=== PATIENT | female | born 1965 | race African-American/Black ===

== ENCOUNTER 2016-09-04 12:37 | Emergency (ER) | payer OTHER ==
[~2016-09-04] VITALS: Ht 170.2 cm; Wt 85.0 kg
[~2016-09-04 12:37] MED LIST: FERR-89 PO; OLAN10TA3 PO; OMEP10 PO
[2016-09-04] MEDS ORDERED: GABA-531 PO (14:03)
[2016-09-04 14:56] VITALS: BP 136/82
== END 2016-09-04 15:43 | disposition home or self-care (01) ==
LOC: EMS 12:38
DX: Z76.0 Encounter for issue of repeat prescription (principal); M79.673 Pain in unspecified foot; K21.9 Gastro-esophageal reflux disease without esophagitis; F14.90 Cocaine use, unspecified, uncomplicated; F17.210 Nicotine dependence, cigarettes, uncomplicated
CPT/HCPCS: 99283

== ENCOUNTER 2016-10-03 12:33 | Inpatient (IN) | payer MEDICAID, OTHER ==
[~2016-10-03] VITALS: Ht 170.2 cm; Wt 60.0 kg
[~2016-10-03 12:33] MED LIST changes: +GABA-531 PO
[2016-10-03 12:51] LABS: GLUCOSE,POINT OF CARE 131 MG/DL (70-110)
[2016-10-03] MEDS ORDERED: DiphenhydrAMINE HCL 50 MG/ML VIAL IM ONE (13:15)
[2016-10-03] MEDS ORDERED: LORazepam 2 MG/ML VIAL IM ONE (13:15)
[2016-10-03] MEDS ORDERED: HALOPERIDOL LACTATE 5 MG/ML VIAL IM ONE (13:15)
[2016-10-03 13:21] LABS: ANION GAP 12 mmol/L (8-16); BASOPHILS % (AUTO) 0.3 % (0.0-2.0); CALCIUM, TOTAL 8.4 mg/dL (8.8-10.5); CARBON DIOXIDE 26 mmol/L (22-29); CHLORIDE 105 mmol/L (98-107); CREATININE 0.93 mg/dL (0.60-1.30); EOSINOPHILS % (AUTO) 0.2 % (1.0-6.0); GLOMERULAR FILTR. RATE CALC > 60 mL/min (>60); HEMATOCRIT 38.4 % (36-46); HEMOGLOBIN 12.6 g/dL (12.0-16.0); LYMPHOCYTES # (AUTO) 3.8 K/uL (1.0-4.8); MEAN CORPUSCULAR HEMOGLOBIN 30.1 pg (26.0-34.0); MEAN CORPUSCULAR HGB CONC 32.7 G/dL (31.0-37.0); MEAN CORPUSCULAR VOLUME 92 fL (80-100); MONOCYTES % (AUTO) 6.6 % (2.0-9.0); NEUTROPHILS # (AUTO) 10.3 K/uL (1.8-7.7); NEUTROPHILS % (AUTO) 67.9 % (40.0-70.0); PLATELET COUNT (AUTO) 200 K/uL (150-450); POTASSIUM 3.6 mmol/L (3.5-5.1); RED BLOOD CELL COUNT(AUTO) 4.17 MIL/uL (4.00-5.20); RED CELL DISTRIBUTION WIDTH 13.9 % (11.5-14.5); SODIUM SERUM 143 mmol/L (136-145); UREA NITROGEN, BLOOD 26 mg/dL (7-18); WHITE BLOOD COUNT (AUTO) 15.1 K/uL (4.5-11.0)
[2016-10-03 13:26] LABS: ALANINE AMINOTRANSFERASE 146 U/L (12-78); ALBUMIN 3.9 g/dL (3.4-5.0); ASPARTATE AMINOTRANSFERASE 189 U/L (15-37); BILIRUBIN,TOTAL 0.2 mg/dL (0.1-1.0)
[2016-10-03] MEDS ORDERED: LORazepam 2 MG TABLET PO PRN (17:45)
[2016-10-03] MEDS ORDERED: HALOPERIDOL 5 MG TABLET PO PRN (17:45)
[2016-10-03] MEDS ORDERED: ZOLPIDEM TARTRATE 10 MG TABLET PO PRN (17:45)
[2016-10-03 20:23] VITALS: BP 107/59
[2016-10-03 20:32] VITALS: BP 107/69
[2016-10-03] MEDS ORDERED: INFLUENZA VIRUS VACCINE QVS 2016-17 (3YR+)/PF 60 MCG/0.5 ML SYRINGE IM ONE (20:45)
[2016-10-03] MEDS: OLANZapine 10 MG TABLET PO SCH (21:00)
[2016-10-03] MEDS ORDERED: OLANZapine 10 MG TABLET PO SCH (21:00)
[2016-10-04 00:47] VITALS: BP 106/75
[2016-10-04 06:00] VITALS: BP 108/72
[2016-10-04] MEDS: ACETAMINOPHEN 325 MG TABLET PO PRN ×2 (06:17→16:51)
[2016-10-04] MEDS: GABAPENTIN 300 MG CAPSULE PO SCH (08:35)
[2016-10-04] MEDS ORDERED: GABAPENTIN 300 MG CAPSULE PO SCH (09:00)
[2016-10-04 16:00] VITALS: BP 134/77
[2016-10-04] MEDS: OLANZapine 10 MG TABLET PO SCH (20:10)
[2016-10-05 08:21] VITALS: BP 130/68
[2016-10-05] MEDS: GABAPENTIN 300 MG CAPSULE PO SCH (08:48)
[2016-10-05 16:05] VITALS: BP 111/69
[2016-10-05] MEDS ORDERED: ACETAMINOPHEN 325 MG TABLET PO PRN (16:45)
[2016-10-05 17:20] VITALS: BP 117/73
[2016-10-05] MEDS: OLANZapine 10 MG TABLET PO SCH (20:30)
[2016-10-05] MEDS ORDERED: IBUPROFEN 400 MG TABLET PO PRN (22:00)
[2016-10-06 00:30] VITALS: BP 129/84
[2016-10-06] MEDS: FERROUS SULFATE 325 MG EC TABLET PO SCH ×3 (06:25→16:09)
[2016-10-06 08:16] VITALS: BP 126/63
[2016-10-06 09:23] LABS: HEMOGLOBIN A1C 5.2 % (4.5-6.2)
[2016-10-06] MEDS: GABAPENTIN 300 MG CAPSULE PO SCH (09:37)
[2016-10-06] MEDS: OMEPRAZOLE 10 MG CAPSULE PO SCH (09:38)
[2016-10-06 09:54] LABS: CHOL/HDL RATIO 2.9 (3.9-5.7); THYROID STIMULATING HORMONE 0.74 uIU/mL (0.36-3.74)
[2016-10-06 16:01] VITALS: BP 119/74
[2016-10-06] MEDS: OLANZapine 10 MG TABLET PO SCH (20:05)
[2016-10-07] MEDS: FERROUS SULFATE 325 MG EC TABLET PO SCH ×3 (06:20→16:22)
[2016-10-07 06:23] VITALS: BP 113/69
[2016-10-07 08:13] VITALS: BP 111/63
[2016-10-07 08:32] LABS: BASOPHILS % (AUTO) 0.6 % (0.0-2.0); EOSINOPHILS % (AUTO) 7.4 % (1.0-6.0); HEMATOCRIT 35.9 % (36-46); HEMOGLOBIN 11.6 g/dL (12.0-16.0); LYMPHOCYTES # (AUTO) 2.9 K/uL (1.0-4.8); LYMPHOCYTES % (AUTO) 40.1 % (22.0-44.0); MEAN CORPUSCULAR HEMOGLOBIN 30.5 pg (26.0-34.0); MEAN CORPUSCULAR HGB CONC 32.4 G/dL (31.0-37.0); MEAN CORPUSCULAR VOLUME 94 fL (80-100); MONOCYTES # (AUTO) 0.6 K/uL (0.1-1.0); MONOCYTES % (AUTO) 8.8 % (2.0-9.0); NEUTROPHILS # (AUTO) 3.1 K/uL (1.8-7.7); NEUTROPHILS % (AUTO) 43.1 % (40.0-70.0); PLATELET COUNT (AUTO) 154 K/uL (150-450); RED BLOOD CELL COUNT(AUTO) 3.82 MIL/uL (4.00-5.20); RED CELL DISTRIBUTION WIDTH 13.9 % (11.5-14.5); WHITE BLOOD COUNT (AUTO) 7.1 K/uL (4.5-11.0)
[2016-10-07] MEDS: OMEPRAZOLE 10 MG CAPSULE PO SCH (08:33)
[2016-10-07] MEDS: GABAPENTIN 300 MG CAPSULE PO SCH (08:33)
[2016-10-07 16:04] VITALS: BP 110/66
[2016-10-07] MEDS: BACITRACIN 28.4 GM OINTMENT TP SCH (16:42)
[2016-10-07] MEDS: CEPHALEXIN MONOHYDRATE 500 MG CAPSULE PO SCH ×2 (16:42→20:36)
[2016-10-07] MEDS: SULFAMETHOX/TRIMETH DS 800-160 MG/TABLET PO SCH (16:42)
[2016-10-07] MEDS: OLANZapine 10 MG TABLET PO SCH (20:36)
[2016-10-08 00:07] VITALS: BP 135/80
[2016-10-08] MEDS: FERROUS SULFATE 325 MG EC TABLET PO SCH ×2 (06:10→11:43)
[2016-10-08 08:52] VITALS: BP 120/76
[2016-10-08] MEDS: CEPHALEXIN MONOHYDRATE 500 MG CAPSULE PO SCH ×2 (09:03→12:43)
[2016-10-08] MEDS: BACITRACIN 28.4 GM OINTMENT TP SCH (09:03)
[2016-10-08] MEDS: OMEPRAZOLE 10 MG CAPSULE PO SCH (09:04)
[2016-10-08] MEDS: GABAPENTIN 300 MG CAPSULE PO SCH (09:04)
[2016-10-08] MEDS: SULFAMETHOX/TRIMETH DS 800-160 MG/TABLET PO SCH (09:04)
[2016-10-08] MEDS ORDERED: BACI30OI10 TP (10:34)
[2016-10-08] MEDS ORDERED: SULF1TAB42 PO (10:34)
[2016-10-08] MEDS ORDERED: CEPH500 PO (10:34)
== END 2016-10-08 13:15 | disposition home or self-care (01) | DRG 750 ==
LOC: EMS 12:35 → EEVIPCON 12:35 → B3A 17:54 → EMS 18:39 → B2S 10-05 12:15
DX: F25.0 Schizoaffective disorder, bipolar type (principal); K73.9 Chronic hepatitis, unspecified; N18.3 Chronic kidney disease, stage 3 (moderate); J44.9 Chronic obstructive pulmonary disease, unspecified; D64.9 Anemia, unspecified; F10.10 Alcohol abuse, uncomplicated; F14.90 Cocaine use, unspecified, uncomplicated; F17.210 Nicotine dependence, cigarettes, uncomplicated; K21.9 Gastro-esophageal reflux disease without esophagitis; Z98.890 Other specified postprocedural states; Z79.84 Long term (current) use of oral hypoglycemic drugs; Z28.21 Immunization not carried out because of patient refusal
CPT/HCPCS: 82962; 83036; 84443; 96372; 99285; G0480; J1200; J1630; J2060

== ENCOUNTER 2016-10-13 04:37 | Emergency (ER) | payer MEDICAID, OTHER ==
[~2016-10-13] VITALS: Ht 170.2 cm; Wt 71.4 kg
[~2016-10-13 04:37] MED LIST changes: +BACI30OI10 TP; +CEPH500 PO; -FERR-89 PO; +FERS325 PO; +SULF1TAB42 PO
[2016-10-13 05:41] LABS: BASOPHILS % (AUTO) 0.3 % (0.0-2.0); EOSINOPHILS % (AUTO) 2.4 % (1.0-6.0); HEMATOCRIT 33.5 % (36-46); HEMOGLOBIN 10.8 g/dL (12.0-16.0); LYMPHOCYTES # (AUTO) 2.5 K/uL (1.0-4.8); LYMPHOCYTES % (AUTO) 27.5 % (22.0-44.0); MEAN CORPUSCULAR HEMOGLOBIN 30.1 pg (26.0-34.0); MEAN CORPUSCULAR HGB CONC 32.1 G/dL (31.0-37.0); MEAN CORPUSCULAR VOLUME 94 fL (80-100); MONOCYTES # (AUTO) 1.1 K/uL (0.1-1.0); MONOCYTES % (AUTO) 11.9 % (2.0-9.0); NEUTROPHILS # (AUTO) 5.3 K/uL (1.8-7.7); NEUTROPHILS % (AUTO) 57.9 % (40.0-70.0); PLATELET COUNT (AUTO) 193 K/uL (150-450); RED BLOOD CELL COUNT(AUTO) 3.58 MIL/uL (4.00-5.20); RED CELL DISTRIBUTION WIDTH 13.4 % (11.5-14.5); WHITE BLOOD COUNT (AUTO) 9.2 K/uL (4.5-11.0)
[2016-10-13 05:53] LABS: ANION GAP 5 mmol/L (8-16); CALCIUM, TOTAL 8.7 mg/dL (8.8-10.5); CARBON DIOXIDE 33 mmol/L (22-29); CHLORIDE 103 mmol/L (98-107); CREATININE 0.85 mg/dL (0.60-1.30); GLOMERULAR FILTR. RATE CALC > 60 mL/min (>60); POTASSIUM 4.2 mmol/L (3.5-5.1); SODIUM SERUM 141 mmol/L (136-145); UREA NITROGEN, BLOOD 14 mg/dL (7-18)
[2016-10-13 06:00] LABS: ALANINE AMINOTRANSFERASE 55 U/L (12-78); ASPARTATE AMINOTRANSFERASE 56 U/L (15-37); BILIRUBIN,TOTAL 1.1 mg/dL (0.1-1.0); TOTAL PROTEIN, SERUM 6.9 g/dL (6.4-8.2)
[2016-10-13] MEDS ORDERED: TraMADol HCL 50 MG TABLET PO ONE (09:30)
[2016-10-13 09:32] VITALS: BP 124/74
== END 2016-10-13 09:56 | disposition home or self-care (01) ==
LOC: EMS 04:39
DX: R68.84 Jaw pain (principal); F20.9 Schizophrenia, unspecified; F12.10 Cannabis abuse, uncomplicated; F17.210 Nicotine dependence, cigarettes, uncomplicated; K21.9 Gastro-esophageal reflux disease without esophagitis; F31.9 Bipolar disorder, unspecified; F14.90 Cocaine use, unspecified, uncomplicated
CPT/HCPCS: 36415; 80053; 80307; 85025; 99284; 99406; G0480

== ENCOUNTER 2016-10-18 06:42 | Emergency (ER) | payer OTHER ==
[~2016-10-18] VITALS: Ht 170.2 cm; Wt 65.0 kg
[~2016-10-18 06:42] MED LIST changes: +FERR-89 PO; -FERS325 PO
[2016-10-18 07:18] LABS: BASOPHILS % (AUTO) 0.4 % (0.0-2.0); EOSINOPHILS % (AUTO) 3.8 % (1.0-6.0); HEMATOCRIT 36.3 % (36-46); HEMOGLOBIN 11.8 g/dL (12.0-16.0); LYMPHOCYTES # (AUTO) 2.7 K/uL (1.0-4.8); LYMPHOCYTES % (AUTO) 44.4 % (22.0-44.0); MEAN CORPUSCULAR HEMOGLOBIN 30.9 pg (26.0-34.0); MEAN CORPUSCULAR HGB CONC 32.4 G/dL (31.0-37.0); MEAN CORPUSCULAR VOLUME 95 fL (80-100); MONOCYTES # (AUTO) 0.7 K/uL (0.1-1.0); MONOCYTES % (AUTO) 10.7 % (2.0-9.0); NEUTROPHILS # (AUTO) 2.5 K/uL (1.8-7.7); NEUTROPHILS % (AUTO) 40.7 % (40.0-70.0); PLATELET COUNT (AUTO) 279 K/uL (150-450); RED BLOOD CELL COUNT(AUTO) 3.81 MIL/uL (4.00-5.20); RED CELL DISTRIBUTION WIDTH 14.3 % (11.5-14.5); WHITE BLOOD COUNT (AUTO) 6.2 K/uL (4.5-11.0)
[2016-10-18 07:30] LABS: ANION GAP 5 mmol/L (8-16); CALCIUM, TOTAL 8.2 mg/dL (8.8-10.5); CARBON DIOXIDE 32 mmol/L (22-29); CHLORIDE 107 mmol/L (98-107); CREATININE 0.69 mg/dL (0.60-1.30); GLOMERULAR FILTR. RATE CALC > 60 mL/min (>60); SODIUM SERUM 144 mmol/L (136-145); UREA NITROGEN, BLOOD 13 mg/dL (7-18)
[2016-10-18] MEDS ORDERED: OxyCODONE HCL/ACETAMINOPHEN 5-325 MG TABLET PO ONE (07:30)
[2016-10-18] MEDS ORDERED: LORazepam 1 MG TABLET PO ONE (07:30)
[2016-10-18 07:39] LABS: ALANINE AMINOTRANSFERASE 35 U/L (12-78); ALBUMIN 3.2 g/dL (3.4-5.0); ASPARTATE AMINOTRANSFERASE 29 U/L (15-37); BILIRUBIN,TOTAL 0.5 mg/dL (0.1-1.0); TOTAL PROTEIN, SERUM 7.2 g/dL (6.4-8.2)
[2016-10-18 08:41] VITALS: BP 121/76
== END 2016-10-18 08:42 | disposition home or self-care (01) ==
LOC: EMS 06:44
DX: R68.84 Jaw pain (principal); F41.9 Anxiety disorder, unspecified; K21.9 Gastro-esophageal reflux disease without esophagitis; F31.9 Bipolar disorder, unspecified; F20.9 Schizophrenia, unspecified; F17.210 Nicotine dependence, cigarettes, uncomplicated; F14.90 Cocaine use, unspecified, uncomplicated
CPT/HCPCS: 93005; 99285

== ENCOUNTER 2016-10-21 05:04 | Emergency (ER) | payer OTHER ==
[~2016-10-21] VITALS: Ht 170.2 cm; Wt 75.0 kg
[~2016-10-21 05:04] MED LIST changes: -BACI30OI10 TP; -CEPH500 PO; -FERR-89 PO; -GABA-531 PO; -OMEP10 PO; -SULF1TAB42 PO
[2016-10-21 05:10] VITALS: BP 146/88
== END 2016-10-21 06:27 | disposition left against medical advice (07) ==
LOC: EMS 05:06
DX: Z76.0 Encounter for issue of repeat prescription (principal); Z53.21 Procedure and treatment not carried out due to patient leaving prior to being seen by health care provider

== ENCOUNTER 2016-10-22 19:10 | Emergency (ER) | payer OTHER ==
[~2016-10-22] VITALS: Ht 165.1 cm; Wt 65.9 kg
[2016-10-22] MEDS ORDERED: TraMADol HCL 50 MG TABLET PO ONE (21:15)
[2016-10-22 21:20] VITALS: BP 132/78
== END 2016-10-22 21:21 | disposition home or self-care (01) ==
LOC: EMS 19:11
DX: R68.84 Jaw pain (principal); F31.9 Bipolar disorder, unspecified; F17.210 Nicotine dependence, cigarettes, uncomplicated; K21.9 Gastro-esophageal reflux disease without esophagitis; F20.9 Schizophrenia, unspecified
CPT/HCPCS: 99283

== ENCOUNTER 2016-10-26 06:58 | Emergency (ER) | payer OTHER ==
[~2016-10-26] VITALS: Ht 170.2 cm; Wt 64.0 kg
[2016-10-26] MEDS ORDERED: SERT50TA12 PO (07:08)
[2016-10-26 07:45] LABS: BASOPHILS % (AUTO) 0.6 % (0.0-2.0); EOSINOPHILS % (AUTO) 1.8 % (1.0-6.0); HEMOGLOBIN 12.6 g/dL (12.0-16.0); LYMPHOCYTES # (AUTO) 2.4 K/uL (1.0-4.8); LYMPHOCYTES % (AUTO) 36.2 % (22.0-44.0); MEAN CORPUSCULAR HEMOGLOBIN 30.5 pg (26.0-34.0); MEAN CORPUSCULAR HGB CONC 32.2 G/dL (31.0-37.0); MEAN CORPUSCULAR VOLUME 95 fL (80-100); MONOCYTES # (AUTO) 0.5 K/uL (0.1-1.0); MONOCYTES % (AUTO) 8.3 % (2.0-9.0); NEUTROPHILS # (AUTO) 3.5 K/uL (1.8-7.7); NEUTROPHILS % (AUTO) 53.1 % (40.0-70.0); PLATELET COUNT (AUTO) 294 K/uL (150-450); RED BLOOD CELL COUNT(AUTO) 4.12 MIL/uL (4.00-5.20); RED CELL DISTRIBUTION WIDTH 15.1 % (11.5-14.5); WHITE BLOOD COUNT (AUTO) 6.5 K/uL (4.5-11.0)
[2016-10-26 07:53] LABS: ANION GAP 9 mmol/L (8-16); CALCIUM, TOTAL 8.8 mg/dL (8.8-10.5); CARBON DIOXIDE 29 mmol/L (22-29); CHLORIDE 104 mmol/L (98-107); GLOMERULAR FILTR. RATE CALC > 60 mL/min (>60); POTASSIUM 3.8 mmol/L (3.5-5.1); SODIUM SERUM 142 mmol/L (136-145); UREA NITROGEN, BLOOD 12 mg/dL (7-18)
[2016-10-26 08:00] LABS: ALANINE AMINOTRANSFERASE 28 U/L (12-78); ALBUMIN 3.6 g/dL (3.4-5.0); ASPARTATE AMINOTRANSFERASE 30 U/L (15-37); BILIRUBIN,TOTAL 0.6 mg/dL (0.1-1.0); TOTAL PROTEIN, SERUM 7.6 g/dL (6.4-8.2)
[2016-10-26] MEDS ORDERED: OLANZapine 5 MG TABLET PO ONE (08:30)
[2016-10-26 08:35] VITALS: BP 129/78
== END 2016-10-26 08:38 | disposition home or self-care (01) ==
LOC: EMS 07:01
DX: F25.9 Schizoaffective disorder, unspecified (principal); F31.9 Bipolar disorder, unspecified; F14.90 Cocaine use, unspecified, uncomplicated; K21.9 Gastro-esophageal reflux disease without esophagitis; F17.210 Nicotine dependence, cigarettes, uncomplicated
CPT/HCPCS: 36415; 80053; 85025; 99284; G0480

== ENCOUNTER 2016-10-28 13:48 | Emergency (ER) | payer OTHER ==
[~2016-10-28] VITALS: Ht 165.1 cm; Wt 54.5 kg
[~2016-10-28 13:48] MED LIST changes: +SERT50TA12 PO
[2016-10-28 13:50] VITALS: BP 146/52
== END 2016-10-28 14:46 | disposition left against medical advice (07) ==
LOC: EMS 13:50
DX: Z04.6 Encounter for general psychiatric examination, requested by authority (principal); Z53.21 Procedure and treatment not carried out due to patient leaving prior to being seen by health care provider

== ENCOUNTER 2016-11-13 08:55 | Inpatient (IN) | payer MEDICAID, OTHER ==
[~2016-11-13] VITALS: Ht 160 cm; Wt 57.8 kg
[2016-11-13] MEDS ORDERED: DiphenhydrAMINE HCL 50 MG/ML VIAL IM ONE (09:15)
[2016-11-13] MEDS ORDERED: HALOPERIDOL LACTATE 5 MG/ML VIAL IM ONE (09:15)
[2016-11-13] MEDS ORDERED: LORazepam 2 MG/ML VIAL IM ONE (09:15)
[2016-11-13] MEDS ORDERED: ACETAMINOPHEN 500 MG TABLET PO ONE (09:15)
[2016-11-13 09:58] LABS: BASOPHILS % (AUTO) 0.7 % (0.0-2.0); EOSINOPHILS % (AUTO) 1.9 % (1.0-6.0); HEMATOCRIT 38.8 % (36-46); HEMOGLOBIN 12.6 g/dL (12.0-16.0); LYMPHOCYTES # (AUTO) 3.6 K/uL (1.0-4.8); LYMPHOCYTES % (AUTO) 44.1 % (22.0-44.0); MEAN CORPUSCULAR HEMOGLOBIN 30.6 pg (26.0-34.0); MEAN CORPUSCULAR HGB CONC 32.4 G/dL (31.0-37.0); MEAN CORPUSCULAR VOLUME 94 fL (80-100); MONOCYTES # (AUTO) 0.5 K/uL (0.1-1.0); MONOCYTES % (AUTO) 5.8 % (2.0-9.0); NEUTROPHILS # (AUTO) 3.9 K/uL (1.8-7.7); NEUTROPHILS % (AUTO) 47.5 % (40.0-70.0); PLATELET COUNT (AUTO) 193 K/uL (150-450); RED BLOOD CELL COUNT(AUTO) 4.12 MIL/uL (4.00-5.20); RED CELL DISTRIBUTION WIDTH 13.8 % (11.5-14.5); WHITE BLOOD COUNT (AUTO) 8.1 K/uL (4.5-11.0)
[2016-11-13 10:01] LABS: ANION GAP 8 mmol/L (8-16); CALCIUM, TOTAL 8.6 mg/dL (8.8-10.5); CARBON DIOXIDE 29 mmol/L (22-29); CHLORIDE 105 mmol/L (98-107); CREATININE 0.71 mg/dL (0.60-1.30); GLOMERULAR FILTR. RATE CALC > 60 mL/min (>60); POTASSIUM 4.1 mmol/L (3.5-5.1); SODIUM SERUM 142 mmol/L (136-145); UREA NITROGEN, BLOOD 16 mg/dL (7-18)
[2016-11-13 10:07] LABS: ALANINE AMINOTRANSFERASE 33 U/L (12-78); ALBUMIN 3.4 g/dL (3.4-5.0); ASPARTATE AMINOTRANSFERASE 29 U/L (15-37); BILIRUBIN,TOTAL 0.4 mg/dL (0.1-1.0); TOTAL PROTEIN, SERUM 7.1 g/dL (6.4-8.2)
[2016-11-13] MEDS ORDERED: ZOLPIDEM TARTRATE 10 MG TABLET PO PRN (10:15)
[2016-11-13 13:18] VITALS: BP 122/62
[2016-11-13 16:00] VITALS: BP 114/72
[2016-11-14 06:57] VITALS: BP 121/68
[2016-11-14 16:45] VITALS: BP 128/80
[2016-11-14] MEDS: IBUPROFEN 600 MG TABLET PO PRN (16:47)
[2016-11-14] MEDS: OLANZapine 10 MG TABLET PO SCH (20:34)
[2016-11-15 08:58] VITALS: BP 126/86
[2016-11-15 09:58] VITALS: BP 118/70
[2016-11-15] MEDS: IBUPROFEN 600 MG TABLET PO PRN ×2 (09:58→20:22)
[2016-11-15] MEDS ORDERED: HALOPERIDOL LACTATE 5 MG/ML VIAL IM ONE (13:00)
[2016-11-15] MEDS ORDERED: LORazepam 2 MG/ML VIAL IM ONE (13:00)
[2016-11-15] MEDS ORDERED: DiphenhydrAMINE HCL 50 MG/ML VIAL IM ONE (13:00)
[2016-11-15 16:22] VITALS: BP 108/67
[2016-11-15 20:20] VITALS: BP 105/69
[2016-11-15] MEDS: OLANZapine 10 MG TABLET PO SCH (20:21)
[2016-11-16] MEDS: LORazepam 2 MG TABLET PO PRN (08:59)
[2016-11-16] MEDS: IBUPROFEN 600 MG TABLET PO PRN ×2 (08:59→20:41)
[2016-11-16] MEDS: HALOPERIDOL 5 MG TABLET PO PRN (08:59)
[2016-11-16 09:02] LABS: THYROID STIMULATING HORMONE 1.35 uIU/mL (0.36-3.74)
[2016-11-16 16:14] VITALS: BP 133/80
[2016-11-16 20:38] VITALS: BP 126/76
[2016-11-16] MEDS: OLANZapine 10 MG TABLET PO SCH (20:41)
[2016-11-17 02:28] VITALS: BP 107/75
[2016-11-17 08:17] VITALS: BP 125/82
[2016-11-17 09:11] VITALS: BP 120/78
[2016-11-17] MEDS: IBUPROFEN 600 MG TABLET PO PRN ×2 (09:11→17:16)
[2016-11-17 16:00] VITALS: BP 123/65
[2016-11-17] MEDS: HALOPERIDOL 5 MG TABLET PO PRN (17:16)
[2016-11-17 17:17] VITALS: BP 131/82
[2016-11-17] MEDS: OLANZapine 10 MG TABLET PO SCH (20:58)
[2016-11-18 02:29] VITALS: BP 101/70
[2016-11-18] MEDS: IBUPROFEN 600 MG TABLET PO PRN ×3 (02:31→15:27)
[2016-11-18 08:32] VITALS: BP 113/58
[2016-11-18 15:25] VITALS: BP 118/76
[2016-11-18 16:27] VITALS: BP 133/83
[2016-11-18] MEDS: OLANZapine 10 MG TABLET PO SCH (20:02)
[2016-11-18] MEDS: DIVALPROEX SODIUM 500 MG DR TABLET PO SCH (20:02)
[2016-11-19] MEDS: DIVALPROEX SODIUM 500 MG DR TABLET PO SCH ×2 (08:15→20:30)
[2016-11-19 08:17] VITALS: BP 128/62
[2016-11-19] MEDS: IBUPROFEN 600 MG TABLET PO PRN ×2 (08:17→16:12)
[2016-11-19 08:25] VITALS: BP 128/62
[2016-11-19 16:13] VITALS: BP 131/84
[2016-11-19] MEDS: HALOPERIDOL 5 MG TABLET PO PRN (16:29)
[2016-11-19] MEDS: LORazepam 2 MG TABLET PO PRN (16:29)
[2016-11-19] MEDS: OLANZapine 10 MG TABLET PO SCH (20:30)
[2016-11-20] MEDS: LORazepam 2 MG TABLET PO PRN ×2 (08:11→16:26)
[2016-11-20] MEDS: DIVALPROEX SODIUM 500 MG DR TABLET PO SCH ×2 (08:11→21:01)
[2016-11-20 08:12] VITALS: BP 142/81
[2016-11-20 08:36] LABS: APPEARANCE,URINE CLEAR (CLEAR); GLUCOSE, URINE (UA) NEGATIVE (NEGATIVE); KETONES,URINE NEGATIVE (NEGATIVE); LEUKOCYTE ESTERASE ,URINE NEGATIVE (NEGATIVE); OCCULT BLOOD,URINE NEGATIVE (NEGATIVE); PROTEIN,URINE NEGATIVE (NEGATIVE)
[2016-11-20 08:39] LABS: ADD UA MICROSCOPIC NO
[2016-11-20 16:07] VITALS: BP 117/60
[2016-11-20] MEDS: OLANZapine 10 MG TABLET PO SCH (21:01)
[2016-11-21 03:53] VITALS: BP 134/80
[2016-11-21] MEDS: IBUPROFEN 600 MG TABLET PO PRN ×2 (03:53→11:49)
[2016-11-21] MEDS: LORazepam 2 MG TABLET PO PRN (08:37)
[2016-11-21] MEDS: DIVALPROEX SODIUM 500 MG DR TABLET PO SCH ×2 (08:37→20:37)
[2016-11-21 09:25] VITALS: BP 126/77
[2016-11-21 11:49] VITALS: BP 122/74
[2016-11-21 16:28] VITALS: BP 115/77
[2016-11-21] MEDS: OLANZapine 10 MG TABLET PO SCH (20:37)
[2016-11-22 08:12] VITALS: BP 112/59
[2016-11-22] MEDS: LORazepam 2 MG TABLET PO PRN (09:06)
[2016-11-22] MEDS: DIVALPROEX SODIUM 500 MG DR TABLET PO SCH ×2 (09:06→20:27)
[2016-11-22 16:00] VITALS: BP 127/66
[2016-11-22] MEDS: OLANZapine 10 MG TABLET PO SCH (20:27)
[2016-11-23 00:10] VITALS: BP 124/70
[2016-11-23 08:36] VITALS: BP 103/57
[2016-11-23] MEDS: LORazepam 2 MG TABLET PO PRN ×2 (09:26→16:10)
[2016-11-23] MEDS: DIVALPROEX SODIUM 500 MG DR TABLET PO SCH ×2 (09:26→21:01)
[2016-11-23 10:49] VITALS: BP 111/64
[2016-11-23] MEDS: IBUPROFEN 600 MG TABLET PO PRN ×2 (10:51→21:01)
[2016-11-23 16:13] VITALS: BP 114/64
[2016-11-23] MEDS: OLANZapine 10 MG TABLET PO SCH (21:01)
[2016-11-24 07:01] VITALS: BP 115/62
[2016-11-24] MEDS: IBUPROFEN 600 MG TABLET PO PRN (07:14)
[2016-11-24 08:19] VITALS: BP 106/61
[2016-11-24] MEDS: LORazepam 2 MG TABLET PO PRN (08:29)
[2016-11-24] MEDS: DIVALPROEX SODIUM 500 MG DR TABLET PO SCH (08:29)
[2016-11-24] MEDS ORDERED: DIVA500T35 PO (14:27)
== END 2016-11-24 17:10 | disposition home or self-care (01) | DRG 750 ==
LOC: EMS 08:58 → B2S 11:23 → B3A 11-14 12:28
PROVIDERS: ADMIT Psychiatry & Neurology Child & Adolescent Psychiatry
DX: F25.0 Schizoaffective disorder, bipolar type (principal); K73.9 Chronic hepatitis, unspecified; N18.3 Chronic kidney disease, stage 3 (moderate); D64.9 Anemia, unspecified; K21.9 Gastro-esophageal reflux disease without esophagitis; F19.10 Other psychoactive substance abuse, uncomplicated; F17.210 Nicotine dependence, cigarettes, uncomplicated; Z72.89 Other problems related to lifestyle; Z71.51 Drug abuse counseling and surveillance of drug abuser; Z71.6 Tobacco abuse counseling
CPT/HCPCS: 83036; 84439; 84443; 96372; 99285; 99406; G0480; J1200; J1630; J2060

== ENCOUNTER 2016-12-19 15:37 | Emergency (ER) | payer MEDICAID ==
[~2016-12-19] VITALS: Ht 167.6 cm; Wt 54.5 kg
[~2016-12-19 15:37] MED LIST changes: +DIVA500T35 PO; -SERT50TA12 PO
[2016-12-19 15:43] VITALS: BP 118/75
== END 2016-12-19 15:57 | disposition left against medical advice (07) ==
LOC: EMS 15:39
DX: Z76.0 Encounter for issue of repeat prescription (principal); F17.210 Nicotine dependence, cigarettes, uncomplicated; F14.90 Cocaine use, unspecified, uncomplicated; Z53.21 Procedure and treatment not carried out due to patient leaving prior to being seen by health care provider

== ENCOUNTER 2017-01-08 07:32 | Emergency (ER) | payer MEDICAID, OTHER ==
[~2017-01-08] VITALS: Ht 170.2 cm; Wt 60.0 kg
[2017-01-08] MEDS ORDERED: IBUPROFEN 600 MG TABLET PO ONE (08:45)
[2017-01-08 08:56] VITALS: BP 127/78
== END 2017-01-08 08:59 | disposition home or self-care (01) ==
LOC: EMS 07:35
DX: S40.011A Contusion of right shoulder, initial encounter (principal); S50.12XA Contusion of left forearm, initial encounter; F31.9 Bipolar disorder, unspecified; F20.9 Schizophrenia, unspecified; K21.9 Gastro-esophageal reflux disease without esophagitis; F14.90 Cocaine use, unspecified, uncomplicated; F17.210 Nicotine dependence, cigarettes, uncomplicated; W01.0XXA Fall on same level from slipping, tripping and stumbling without subsequent striking against object, initial encounter; Y93.89 Activity, other specified; Y92.89 Other specified places as the place of occurrence of the external cause; Y99.8 Other external cause status
CPT/HCPCS: 99282; 99406

== ENCOUNTER 2017-01-15 23:59 | Emergency (ER) | payer OTHER ==
[~2017-01-15] VITALS: Ht 170.2 cm; Wt 54.0 kg
[2017-01-16 00:07] VITALS: BP 139/83
[2017-01-16] MEDS ORDERED: BENZTROPINE MESYLATE 1 MG/ML 2 ML AMP IM ONE (00:30)
[2017-01-16] MEDS ORDERED: HYDROCODONE/ACETAMINOPHEN 5-325 MG TABLET PO ONE (00:30)
[2017-01-16] MEDS ORDERED: DiphenhydrAMINE HCL 25 MG CAPSULE PO ONE (00:30)
== END 2017-01-16 00:57 | disposition home or self-care (01) ==
LOC: EMS 01-16 00:02
DX: G25.9 Extrapyramidal and movement disorder, unspecified (principal); M62.838 Other muscle spasm; R68.84 Jaw pain; F31.9 Bipolar disorder, unspecified; F20.9 Schizophrenia, unspecified; F17.210 Nicotine dependence, cigarettes, uncomplicated; F14.90 Cocaine use, unspecified, uncomplicated; K21.9 Gastro-esophageal reflux disease without esophagitis
CPT/HCPCS: 96372; 99283; J0515

== ENCOUNTER 2017-01-19 16:24 | Emergency (ER) | payer OTHER ==
[~2017-01-19] VITALS: Ht 170.2 cm; Wt 78.6 kg
[2017-01-19 16:31] VITALS: BP 123/76
== END 2017-01-19 19:32 | disposition left against medical advice (07) ==
LOC: EMS 16:27
DX: R68.84 Jaw pain (principal); K21.9 Gastro-esophageal reflux disease without esophagitis; F17.210 Nicotine dependence, cigarettes, uncomplicated; F14.90 Cocaine use, unspecified, uncomplicated; Z53.21 Procedure and treatment not carried out due to patient leaving prior to being seen by health care provider
CPT/HCPCS: 99283

== ENCOUNTER 2017-01-24 21:07 | Emergency (ER) | payer OTHER ==
[~2017-01-24] VITALS: Ht 170.2 cm; Wt 54.5 kg
[2017-01-24 22:14] VITALS: BP 122/81
[2017-01-24] MEDS ORDERED: SULFAMETHOX/TRIMETH DS 800-160 MG/TABLET PO ONE (22:15)
[2017-01-24] MEDS ORDERED: CEPHALEXIN MONOHYDRATE 500 MG CAPSULE PO ONE (22:15)
== END 2017-01-24 22:26 | disposition home or self-care (01) ==
LOC: EMS 21:08
DX: L03.114 Cellulitis of left upper limb (principal); F31.9 Bipolar disorder, unspecified; F20.9 Schizophrenia, unspecified; F14.10 Cocaine abuse, uncomplicated; F17.210 Nicotine dependence, cigarettes, uncomplicated; K21.9 Gastro-esophageal reflux disease without esophagitis
CPT/HCPCS: 99283; 99406

== ENCOUNTER 2017-01-26 22:29 | Emergency (ER) | payer OTHER ==
[~2017-01-26] VITALS: Ht 157.5 cm; Wt 60.0 kg
[2017-01-26 22:40] VITALS: BP 126/85
[2017-01-26 23:26] LABS: BASOPHILS % (AUTO) 0.9 % (0.0-2.0); EOSINOPHILS % (AUTO) 1.5 % (1.0-6.0); HEMATOCRIT 36.8 % (36-46); HEMOGLOBIN 12.3 g/dL (12.0-16.0); LYMPHOCYTES % (AUTO) 41.2 % (22.0-44.0); MEAN CORPUSCULAR HEMOGLOBIN 31.4 pg (26.0-34.0); MEAN CORPUSCULAR HGB CONC 33.4 G/dL (31.0-37.0); MEAN CORPUSCULAR VOLUME 94 fL (80-100); MONOCYTES # (AUTO) 0.4 K/uL (0.1-1.0); MONOCYTES % (AUTO) 5.4 % (2.0-9.0); NEUTROPHILS # (AUTO) 3.7 K/uL (1.8-7.7); PLATELET COUNT (AUTO) 150 K/uL (150-450); RED BLOOD CELL COUNT(AUTO) 3.92 MIL/uL (4.00-5.20); RED CELL DISTRIBUTION WIDTH 14.6 % (11.5-14.5); WHITE BLOOD COUNT (AUTO) 7.2 K/uL (4.5-11.0)
[2017-01-26 23:33] LABS: ANION GAP 6 mmol/L (8-16); CALCIUM, TOTAL 8.4 mg/dL (8.8-10.5); CARBON DIOXIDE 30 mmol/L (22-29); CHLORIDE 106 mmol/L (98-107); CREATININE 0.71 mg/dL (0.60-1.30); GLOMERULAR FILTR. RATE CALC > 60 mL/min (>60); POTASSIUM 3.6 mmol/L (3.5-5.1); SODIUM SERUM 142 mmol/L (136-145); UREA NITROGEN, BLOOD 11 mg/dL (7-18)
[2017-01-26 23:39] LABS: ALANINE AMINOTRANSFERASE 24 U/L (12-78); ALBUMIN 3.4 g/dL (3.4-5.0); ASPARTATE AMINOTRANSFERASE 21 U/L (15-37); BILIRUBIN,TOTAL 0.3 mg/dL (0.1-1.0); TOTAL PROTEIN, SERUM 6.7 g/dL (6.4-8.2)
== END 2017-01-27 01:00 | disposition home or self-care (01) ==
LOC: EEVIPCON 22:30 → EMS 22:30
DX: F25.9 Schizoaffective disorder, unspecified (principal); F31.9 Bipolar disorder, unspecified; K21.9 Gastro-esophageal reflux disease without esophagitis; F14.90 Cocaine use, unspecified, uncomplicated; F17.210 Nicotine dependence, cigarettes, uncomplicated
CPT/HCPCS: 36415; 80053; 80307; 85025; 99284; G0480

== ENCOUNTER 2017-02-02 07:11 | Emergency (ER) | payer OTHER ==
[~2017-02-02] VITALS: Ht 170.2 cm; Wt 65.9 kg
[2017-02-02] MEDS ORDERED: PERMETHRIN 5% 60 GM CREAM TP ONE (09:00)
[2017-02-02] MEDS ORDERED: BETAMETHASONE VAL 0.1% 15 GM CREAM TP ONE (09:00)
[2017-02-02 09:04] VITALS: BP 113/76
== END 2017-02-02 09:06 | disposition home or self-care (01) ==
LOC: EMS 07:13
DX: B86 Scabies (principal); L30.9 Dermatitis, unspecified; F17.210 Nicotine dependence, cigarettes, uncomplicated; F20.9 Schizophrenia, unspecified; K21.9 Gastro-esophageal reflux disease without esophagitis
CPT/HCPCS: 99283

== ENCOUNTER 2017-02-02 19:18 | Emergency (ER) | payer OTHER ==
[~2017-02-02] VITALS: Ht 160 cm; Wt 62.0 kg
[2017-02-02 19:24] VITALS: BP 127/82
== END 2017-02-02 20:05 | disposition left against medical advice (07) ==
LOC: EMS 19:19
DX: Z00.8 Encounter for other general examination (principal); F31.9 Bipolar disorder, unspecified; F20.9 Schizophrenia, unspecified; K21.9 Gastro-esophageal reflux disease without esophagitis; F12.90 Cannabis use, unspecified, uncomplicated; F14.90 Cocaine use, unspecified, uncomplicated; F15.90 Other stimulant use, unspecified, uncomplicated; F17.210 Nicotine dependence, cigarettes, uncomplicated; Z53.21 Procedure and treatment not carried out due to patient leaving prior to being seen by health care provider

== ENCOUNTER 2017-02-23 21:32 | Emergency (ER) | payer OTHER ==
[~2017-02-23] VITALS: Ht 170.2 cm; Wt 68.0 kg
[2017-02-23] MEDS ORDERED: RisperiDONE 1 MG TABLET PO ONE (22:45)
[2017-02-23] MEDS ORDERED: LORazepam 2 MG TABLET PO ONE (22:45)
[2017-02-23 22:48] VITALS: BP 133/84
== END 2017-02-23 22:50 | disposition home or self-care (01) ==
LOC: EMS 21:34
DX: F25.9 Schizoaffective disorder, unspecified (principal); G62.89 Other specified polyneuropathies; F31.9 Bipolar disorder, unspecified; K21.9 Gastro-esophageal reflux disease without esophagitis; F12.90 Cannabis use, unspecified, uncomplicated; F14.90 Cocaine use, unspecified, uncomplicated; F15.90 Other stimulant use, unspecified, uncomplicated
CPT/HCPCS: 99284

== ENCOUNTER 2017-03-10 19:38 | Emergency (ER) | payer MEDICAID, OTHER ==
[~2017-03-10] VITALS: Ht 167.6 cm; Wt 55.0 kg
[~2017-03-10 19:38] MED LIST changes: -DIVA500T35 PO; +FERR-89 PO; +MULT-1239 PO; -OLAN10TA3 PO; +OLAN10TA6 PO; +VALP250 PO
[2017-03-10 21:29] LABS: BASOPHILS # (AUTO) 0.15 K/uL (0.00-0.20); BASOPHILS % (AUTO) 1.7 % (0.0-2.0); EOSINOPHILS # (AUTO) 0.12 K/uL (0.00-0.70); HEMATOCRIT 32.9 % (36-46); HEMOGLOBIN 10.8 g/dL (12.0-16.0); LYMPHOCYTES # (AUTO) 3.7 K/uL (1.0-4.8); LYMPHOCYTES % (AUTO) 42.3 % (22.0-44.0); MEAN CORPUSCULAR HEMOGLOBIN 32.4 pg (26.0-34.0); MEAN CORPUSCULAR HGB CONC 32.7 G/dL (31.0-37.0); MEAN CORPUSCULAR VOLUME 99 fL (80-100); MONOCYTES # (AUTO) 0.5 K/uL (0.1-1.0); MONOCYTES % (AUTO) 6.2 % (2.0-9.0); NEUTROPHILS # (AUTO) 4.2 K/uL (1.8-7.7); NEUTROPHILS % (AUTO) 48.4 % (40.0-70.0); PLATELET COUNT (AUTO) 160 K/uL (150-450); RED BLOOD CELL COUNT(AUTO) 3.32 MIL/uL (4.00-5.20); RED CELL DISTRIBUTION WIDTH 15.9 % (11.5-14.5); WHITE BLOOD COUNT (AUTO) 8.7 K/uL (4.5-11.0)
[2017-03-10 21:40] LABS: ANION GAP 11 mmol/L (8-16); CALCIUM, TOTAL 8.3 mg/dL (8.8-10.5); CARBON DIOXIDE 28 mmol/L (22-29); CHLORIDE 108 mmol/L (98-107); CREATININE 0.73 mg/dL (0.60-1.30); GLOMERULAR FILTR. RATE CALC > 60 mL/min (>60); POTASSIUM 3.8 mmol/L (3.5-5.1); SODIUM SERUM 147 mmol/L (136-145); UREA NITROGEN, BLOOD 12 mg/dL (7-18)
[2017-03-10 21:47] LABS: ALANINE AMINOTRANSFERASE 24 U/L (12-78); ALBUMIN 3.2 g/dL (3.4-5.0); ASPARTATE AMINOTRANSFERASE 20 U/L (15-37); BILIRUBIN,TOTAL 0.2 mg/dL (0.1-1.0); TOTAL PROTEIN, SERUM 6.6 g/dL (6.4-8.2)
[2017-03-10 22:17] VITALS: BP 118/84
== END 2017-03-10 23:21 | disposition home or self-care (01) ==
LOC: EMS 19:40
DX: F25.9 Schizoaffective disorder, unspecified (principal); F17.210 Nicotine dependence, cigarettes, uncomplicated; F31.9 Bipolar disorder, unspecified; K21.9 Gastro-esophageal reflux disease without esophagitis; I10 Essential (primary) hypertension; F14.90 Cocaine use, unspecified, uncomplicated; F12.90 Cannabis use, unspecified, uncomplicated; F19.90 Other psychoactive substance use, unspecified, uncomplicated
CPT/HCPCS: 36415; 80053; 80307; 85025; 99284; 99406; G0480

== ENCOUNTER 2017-04-22 11:15 | Emergency (ER) | payer MEDICAID, OTHER ==
[~2017-04-22] VITALS: Ht 170.2 cm; Wt 57.0 kg
[~2017-04-22 11:15] MED LIST changes: -FERR-89 PO; -MULT-1239 PO
[2017-04-22] MEDS ORDERED: ACETAMINOPHEN 500 MG TABLET PO ONE (12:45)
[2017-04-22] MEDS ORDERED: BENZTROPINE MESYLATE 0.5 MG TABLET PO ONE (12:45)
[2017-04-22 13:22] LABS: BASOPHILS # (AUTO) 0.02 K/uL (0.00-0.20); BASOPHILS % (AUTO) 0.2 % (0.0-2.0); EOSINOPHILS % (AUTO) 1.43 % (1.0-6.0); HEMATOCRIT 40.8 % (36-46); HEMOGLOBIN 13.8 g/dL (12.0-16.0); LYMPHOCYTES # (AUTO) 1.8 K/uL (1.0-4.8); LYMPHOCYTES % (AUTO) 25.5 % (22.0-44.0); MEAN CORPUSCULAR HEMOGLOBIN 32.5 pg (26.0-34.0); MEAN CORPUSCULAR HGB CONC 33.9 G/dL (31.0-37.0); MEAN CORPUSCULAR VOLUME 96 fL (80-100); MONOCYTES # (AUTO) 0.6 K/uL (0.1-1.0); MONOCYTES % (AUTO) 8.3 % (2.0-9.0); NEUTROPHILS # (AUTO) 4.6 K/uL (1.8-7.7); NEUTROPHILS % (AUTO) 64.6 % (40.0-70.0); PLATELET COUNT (AUTO) 137 K/uL (150-450); RED BLOOD CELL COUNT(AUTO) 4.26 MIL/uL (4.00-5.20); RED CELL DISTRIBUTION WIDTH 13.9 % (11.5-14.5); WHITE BLOOD COUNT (AUTO) 7.2 K/uL (4.5-11.0)
[2017-04-22 13:30] LABS: APPEARANCE,URINE CLOUDY (CLEAR); GLUCOSE, URINE (UA) NEGATIVE (NEGATIVE); KETONES,URINE TRACE mg/dL (NEGATIVE); LEUKOCYTE ESTERASE ,URINE NEGATIVE (NEGATIVE); OCCULT BLOOD,URINE NEGATIVE (NEGATIVE); PROTEIN,URINE TRACE (NEGATIVE)
[2017-04-22 13:32] LABS: ANION GAP 10 mmol/L (8-16); CALCIUM, TOTAL 8.5 mg/dL (8.8-10.5); CARBON DIOXIDE 29 mmol/L (22-29); CHLORIDE 104 mmol/L (98-107); CREATININE 0.65 mg/dL (0.60-1.30); GLOMERULAR FILTR. RATE CALC > 60 mL/min (>60); POTASSIUM 3.2 mmol/L (3.5-5.1); SODIUM SERUM 143 mmol/L (136-145); UREA NITROGEN, BLOOD 10 mg/dL (7-18)
[2017-04-22 13:37] LABS: ADD UA MICROSCOPIC YES
[2017-04-22 13:38] LABS: ALANINE AMINOTRANSFERASE 27 U/L (12-78); ALBUMIN 3.2 g/dL (3.4-5.0); ASPARTATE AMINOTRANSFERASE 27 U/L (15-37); BILIRUBIN,TOTAL 0.4 mg/dL (0.1-1.0); TOTAL PROTEIN, SERUM 6.8 g/dL (6.4-8.2)
[2017-04-22 13:40] LABS: RBC,URINE None Seen /HPF (0-2); WBC,URINE 0-2 /HPF (0-5)
[2017-04-22 13:41] LABS: CALCIUM OXALATE CRYSTALS,UR Moderate /LPF (None Seen); SQUAMOUS EPITHELIAL CELL,UR Many /LPF (None Seen)
[2017-04-22 14:45] VITALS: BP 108/88
== END 2017-04-22 14:46 | disposition home or self-care (01) ==
LOC: EMS 11:17
DX: S09.90XA Unspecified injury of head, initial encounter (principal); S00.83XA Contusion of other part of head, initial encounter; F20.9 Schizophrenia, unspecified; M47.892 Other spondylosis, cervical region; R44.0 Auditory hallucinations; F10.20 Alcohol dependence, uncomplicated; F31.9 Bipolar disorder, unspecified; K21.9 Gastro-esophageal reflux disease without esophagitis; H54.62 Unqualified visual loss, left eye, normal vision right eye; F17.210 Nicotine dependence, cigarettes, uncomplicated; F14.10 Cocaine abuse, uncomplicated; F15.10 Other stimulant abuse, uncomplicated; F12.10 Cannabis abuse, uncomplicated; K75.9 Inflammatory liver disease, unspecified; Z98.890 Other specified postprocedural states; Z59.0 Homelessness; W01.0XXA Fall on same level from slipping, tripping and stumbling without subsequent striking against object, initial encounter; Y93.02 Activity, running; Y92.89 Other specified places as the place of occurrence of the external cause; Y99.9 Unspecified external cause status
CPT/HCPCS: 70450; 72125; 93005; 99285

== ENCOUNTER 2017-05-18 08:58 | Emergency (ER) | payer OTHER | END 2017-05-18 09:11 | disposition left against medical advice (07) | LOC: EMS 09:00 | DX: R10.2 Pelvic and perineal pain (principal); Z53.21 Procedure and treatment not carried out due to patient leaving prior to being seen by health care provider ==

== ENCOUNTER 2017-06-03 06:10 | Inpatient (IN) | payer MEDICAID, OTHER ==
[~2017-06-03] VITALS: Ht 170.2 cm; Wt 56.2 kg
[2017-06-03] MEDS ORDERED: HALOPERIDOL 5 MG TABLET PO ONE (06:45)
[2017-06-03 06:57] LABS: BASOPHILS # (AUTO) 0.05 K/uL (0.00-0.20); BASOPHILS % (AUTO) 0.6 % (0.0-2.0); EOSINOPHILS # (AUTO) 0.13 K/uL (0.00-0.70); EOSINOPHILS % (AUTO) 1.77 % (1.0-6.0); HEMATOCRIT 39.7 % (36-46); HEMOGLOBIN 13.1 g/dL (12.0-16.0); LYMPHOCYTES # (AUTO) 2.7 K/uL (1.0-4.8); LYMPHOCYTES % (AUTO) 36.5 % (22.0-44.0); MEAN CORPUSCULAR HEMOGLOBIN 32.7 pg (26.0-34.0); MEAN CORPUSCULAR HGB CONC 33.1 G/dL (31.0-37.0); MEAN CORPUSCULAR VOLUME 99 fL (80-100); MONOCYTES # (AUTO) 0.5 K/uL (0.1-1.0); MONOCYTES % (AUTO) 7.1 % (2.0-9.0); PLATELET COUNT (AUTO) 184 K/uL (150-450); RED BLOOD CELL COUNT(AUTO) 4.02 MIL/uL (4.00-5.20); RED CELL DISTRIBUTION WIDTH 14.6 % (11.5-14.5); WHITE BLOOD COUNT (AUTO) 7.4 K/uL (4.5-11.0)
[2017-06-03 07:06] LABS: ANION GAP 2 mmol/L (8-16); CALCIUM, TOTAL 8.8 mg/dL (8.8-10.5); CARBON DIOXIDE 32 mmol/L (22-29); CHLORIDE 105 mmol/L (98-107); CREATININE 0.61 mg/dL (0.60-1.30); GLOMERULAR FILTR. RATE CALC > 60 mL/min (>60); SODIUM SERUM 139 mmol/L (136-145); UREA NITROGEN, BLOOD 13 mg/dL (7-18)
[2017-06-03 07:13] LABS: ALANINE AMINOTRANSFERASE 28 U/L (12-78); ALBUMIN 3.4 g/dL (3.4-5.0); ASPARTATE AMINOTRANSFERASE 26 U/L (15-37); BILIRUBIN,TOTAL 0.7 mg/dL (0.1-1.0); TOTAL PROTEIN, SERUM 6.4 g/dL (6.4-8.2)
[2017-06-03 07:15] LABS: VALPROIC ACID < 3 mcg/mL (50-100)
[2017-06-03] MEDS ORDERED: HALOPERIDOL LACTATE 5 MG/ML VIAL IM ONE (08:30)
[2017-06-03] MEDS ORDERED: LORazepam 2 MG/ML VIAL IM ONE (08:30)
[2017-06-03] MEDS ORDERED: ZOLPIDEM TARTRATE 10 MG TABLET PO PRN (08:30)
[2017-06-03] MEDS ORDERED: DiphenhydrAMINE HCL 50 MG/ML VIAL IM ONE (08:30)
[2017-06-03] MEDS ORDERED: INFLUENZA VIRUS VACCINE QVS 2017-18 (3YR+)/PF 60 MCG/0.5 ML SYRINGE IM ONE (11:15)
[2017-06-03] MEDS: OLANZapine 5 MG RAPDIS TABLET PO PRN (12:22)
[2017-06-03] MEDS: LORazepam 2 MG TABLET PO PRN (12:22)
[2017-06-03 16:02] VITALS: BP 113/63
[2017-06-03 19:08] VITALS: BP 113/63
[2017-06-03] MEDS ORDERED: PETROLATUM,WHITE 71 GM JELLY TP PRN (19:45)
[2017-06-03] MEDS ORDERED: MAGNESIUM HYDROXIDE SUSPENSION 30 ML UDCUP PO PRN (19:45)
[2017-06-03] MEDS ORDERED: ONDANSETRON HCL 4 MG TABLET PO PRN (19:45)
[2017-06-03] MEDS ORDERED: BACITRACIN 28.4 GM OINTMENT TP PRN (19:45)
[2017-06-03] MEDS ORDERED: LOPERAMIDE HCL 2 MG CAPSULE PO PRN (19:45)
[2017-06-03] MEDS ORDERED: MAG HYDROX/AL HYDROX/SIMETH ES 30 ML SUSPENSION UDCUP PO PRN (19:45)
[2017-06-03] MEDS ORDERED: ALBUTEROL SULFATE HFA 90 MCG/PUFF 8 GM INHALER IH PRN (19:45)
[2017-06-03] MEDS ORDERED: BENZOCAINE/MENTHOL LOZENGE MM PRN (19:45)
[2017-06-03] MEDS ORDERED: CloNIDine HCL 0.1 MG TABLET PO PRN (19:45)
[2017-06-03] MEDS ORDERED: ACETAMINOPHEN 325 MG TABLET PO PRN (19:45)
[2017-06-03] MEDS: OLANZapine 10 MG RAPDIS TABLET PO SCH (20:39)
[2017-06-03] MEDS: DIVALPROEX SODIUM 500 MG DR TABLET PO SCH (20:39)
[2017-06-04] MEDS: DIVALPROEX SODIUM 500 MG DR TABLET PO SCH ×2 (08:02→20:15)
[2017-06-04] MEDS: MULTIVITAMINS WITH MINERALS, THERAPEUTIC TABLET PO SCH (08:02)
[2017-06-04] MEDS: LORazepam 2 MG TABLET PO PRN ×2 (08:02→16:25)
[2017-06-04] MEDS: OLANZapine 5 MG RAPDIS TABLET PO PRN (08:02)
[2017-06-04 08:20] LABS: THYROID STIMULATING HORMONE 0.36 uIU/mL (0.36-3.74)
[2017-06-04 08:42] VITALS: BP 127/82
[2017-06-04 16:00] VITALS: BP 141/76
[2017-06-04] MEDS: IBUPROFEN 600 MG TABLET PO PRN (16:25)
[2017-06-04] MEDS: OLANZapine 10 MG RAPDIS TABLET PO SCH (20:15)
[2017-06-05] MEDS: MULTIVITAMINS WITH MINERALS, THERAPEUTIC TABLET PO SCH (08:18)
[2017-06-05] MEDS: LORazepam 2 MG TABLET PO PRN ×2 (08:18→16:09)
[2017-06-05] MEDS: DIVALPROEX SODIUM 500 MG DR TABLET PO SCH ×2 (08:18→20:04)
[2017-06-05 09:15] VITALS: BP 122/80
[2017-06-05 10:15] LABS: HEPATITIS Bs ANTIGEN SCREEN P Negative (Negative); HEPATITIS C AB SCREEN >11.0 s/co ratio (0.0-0.9)
[2017-06-05 16:47] VITALS: BP 131/65
[2017-06-05] MEDS: OLANZapine 10 MG RAPDIS TABLET PO SCH (20:04)
[2017-06-06 02:01] VITALS: BP 127/66
[2017-06-06] MEDS: MULTIVITAMINS WITH MINERALS, THERAPEUTIC TABLET PO SCH (08:06)
[2017-06-06] MEDS: LORazepam 2 MG TABLET PO PRN ×2 (08:06→18:05)
[2017-06-06] MEDS: DIVALPROEX SODIUM 500 MG DR TABLET PO SCH ×2 (08:06→20:42)
[2017-06-06 08:56] VITALS: BP 132/88
[2017-06-06 13:57] VITALS: BP 126/84
[2017-06-06 16:39] VITALS: BP 137/81
[2017-06-06] MEDS: OLANZapine 10 MG RAPDIS TABLET PO SCH (20:42)
[2017-06-07 00:52] VITALS: BP 138/94
[2017-06-07] MEDS: IBUPROFEN 600 MG TABLET PO PRN (00:54)
[2017-06-07 08:25] VITALS: BP 117/77
[2017-06-07] MEDS: MULTIVITAMINS WITH MINERALS, THERAPEUTIC TABLET PO SCH (09:11)
[2017-06-07] MEDS: DIVALPROEX SODIUM 500 MG DR TABLET PO SCH ×2 (09:11→21:31)
[2017-06-07 10:21] VITALS: BP 117/77
[2017-06-07] MEDS: LORazepam 2 MG TABLET PO PRN (10:21)
[2017-06-07 16:40] VITALS: BP 135/86
[2017-06-07] MEDS: OLANZapine 10 MG RAPDIS TABLET PO SCH (21:31)
[2017-06-08 03:00] VITALS: BP 122/71
[2017-06-08 08:26] VITALS: BP 122/75
[2017-06-08] MEDS: DIVALPROEX SODIUM 500 MG DR TABLET PO SCH ×2 (08:55→20:27)
[2017-06-08] MEDS: MULTIVITAMINS WITH MINERALS, THERAPEUTIC TABLET PO SCH (08:55)
[2017-06-08] MEDS: LORazepam 2 MG TABLET PO PRN ×2 (08:56→20:27)
[2017-06-08] MEDS: OLANZapine 10 MG RAPDIS TABLET PO SCH (20:27)
[2017-06-09 01:41] VITALS: BP 112/78
[2017-06-09] MEDS: LORazepam 2 MG TABLET PO PRN (01:43)
[2017-06-09 04:39] VITALS: BP 108/70
[2017-06-09] MEDS: IBUPROFEN 600 MG TABLET PO PRN (04:42)
[2017-06-09] MEDS: MULTIVITAMINS WITH MINERALS, THERAPEUTIC TABLET PO SCH (08:17)
[2017-06-09] MEDS: DIVALPROEX SODIUM 500 MG DR TABLET PO SCH (08:17)
[2017-06-09 08:56] VITALS: BP 102/58
== END 2017-06-09 13:30 | disposition home or self-care (01) | DRG 750 ==
LOC: EMS 06:12 → B3A 09:08
PROVIDERS: ADMIT Psychiatry & Neurology Psychiatry; ATTEND Psychiatry & Neurology Psychiatry
PROC: 3E0234Z Introduction of Serum, Toxoid and Vaccine into Muscle, Percutaneous Approach (ICD-10-PCS; principal; 2017-06-04)
DX: F25.0 Schizoaffective disorder, bipolar type (principal); Z59.0 Homelessness; J44.9 Chronic obstructive pulmonary disease, unspecified; F41.9 Anxiety disorder, unspecified; F17.200 Nicotine dependence, unspecified, uncomplicated; F12.90 Cannabis use, unspecified, uncomplicated; Z23 Encounter for immunization; F14.90 Cocaine use, unspecified, uncomplicated; F51.3 Sleepwalking [somnambulism]; G47.00 Insomnia, unspecified; K21.9 Gastro-esophageal reflux disease without esophagitis; M54.5 Low back pain; R68.84 Jaw pain; Z56.0 Unemployment, unspecified; Z72.89 Other problems related to lifestyle; Z71.41 Alcohol abuse counseling and surveillance of alcoholic; Z71.51 Drug abuse counseling and surveillance of drug abuser; Z71.6 Tobacco abuse counseling; B19.20 Unspecified viral hepatitis C without hepatic coma
CPT/HCPCS: 80074; 84439; 84443; 90471; 99285; G0480; J3535

== ENCOUNTER 2017-07-05 10:33 | Emergency (ER) | payer MEDICAID | END 2017-07-05 11:19 | disposition left against medical advice (07) | LOC: EMS 10:37 | DX: Z00.00 Encounter for general adult medical examination without abnormal findings (principal); Z53.21 Procedure and treatment not carried out due to patient leaving prior to being seen by health care provider ==

== ENCOUNTER 2017-08-11 10:08 | Emergency (ER) | payer MEDICAID | END 2017-08-11 10:43 | disposition left against medical advice (07) | LOC: EMS 10:10 | DX: Z76.0 Encounter for issue of repeat prescription (principal); Z53.21 Procedure and treatment not carried out due to patient leaving prior to being seen by health care provider ==

== ENCOUNTER 2018-06-26 07:11 | Emergency (ER) | payer MEDICAID ==
[~2018-06-26] VITALS: Ht 170.2 cm; Wt 75.0 kg
[2018-06-26] MEDS ORDERED: RISP2 PO (07:19)
[2018-06-26 07:50] VITALS: BP 114/75
[2018-06-26] MEDS: IBUPROFEN 600 MG TABLET PO ONE (08:04)
[2018-06-26] MEDS: OLANZapine 5 MG TABLET PO ONE (08:27)
== END 2018-06-26 09:06 | disposition home or self-care (01) ==
LOC: EMS 07:12
DX: R68.84 Jaw pain (principal); F25.9 Schizoaffective disorder, unspecified; F31.9 Bipolar disorder, unspecified; K21.9 Gastro-esophageal reflux disease without esophagitis; F17.210 Nicotine dependence, cigarettes, uncomplicated; F12.90 Cannabis use, unspecified, uncomplicated; F14.90 Cocaine use, unspecified, uncomplicated; F15.90 Other stimulant use, unspecified, uncomplicated; Z59.0 Homelessness

== ENCOUNTER 2018-07-29 21:55 | Inpatient (IN) | payer MEDICAID ==
[~2018-07-29] VITALS: Ht 180.3 cm; Wt 72.3 kg
[~2018-07-29 21:55] MED LIST changes: -OLAN10TA6 PO; +RISP2 PO; -VALP250 PO
[2018-07-29 22:56] LABS: BASOPHILS % (AUTO) 0.8 % (0.0-2.0); EOSINOPHILS % (AUTO) 1.8 % (1.0-6.0); HEMATOCRIT 40.9 % (36-46); HEMOGLOBIN 13.6 g/dL (12.0-16.0); LYMPHOCYTES % (AUTO) 47.1 % (22.0-44.0); MEAN CORPUSCULAR HEMOGLOBIN 32.9 pg (26.0-34.0); MEAN CORPUSCULAR HGB CONC 33.3 G/dL (31.0-37.0); MEAN CORPUSCULAR VOLUME 99 fL (80-100); MONOCYTES # (AUTO) 0.6 K/uL (0.1-1.0); NEUTROPHILS # (AUTO) 3.7 K/uL (1.8-7.7); NEUTROPHILS % (AUTO) 43.3 % (40.0-70.0); PLATELET COUNT (AUTO) 224 K/uL (150-450); RED BLOOD CELL COUNT(AUTO) 4.14 MIL/uL (4.00-5.20); RED CELL DISTRIBUTION WIDTH 13.7 % (11.5-14.5)
[2018-07-29 23:04] LABS: AMPHET/METH SCREEN,URINE NEGATIVE (NEGATIVE); BARBITURATE SCREEN, URINE NEGATIVE (NEGATIVE); BENZODIAZEPINES SCREEN,URINE NEGATIVE (NEGATIVE); CANNABINOID SCREEN,URINE NEGATIVE (NEGATIVE); COCAINE SCREEN,URINE POSITIVE (NEGATIVE); METHADONE SCREEN, URINE NEGATIVE (NEGATIVE); OPIATE SCREEN,URINE NEGATIVE (NEGATIVE)
[2018-07-29 23:04] LABS: ANION GAP 5 mmol/L (8-16); CALCIUM, TOTAL 8.5 mg/dL (8.8-10.5); CARBON DIOXIDE 31 mmol/L (22-29); CHLORIDE 103 mmol/L (98-107); CREATININE 0.84 mg/dL (0.60-1.30); GLOMERULAR FILTR. RATE CALC > 60 mL/min (>60); GLUCOSE,RANDOM 87 mg/dL (70-110); POTASSIUM 3.6 mmol/L (3.5-5.1); SODIUM SERUM 139 mmol/L (136-145); UREA NITROGEN, BLOOD 5 mg/dL (7-18)
[2018-07-29 23:05] LABS: PHENCYCLIDINE SCREEN,URINE NEGATIVE (NEGATIVE)
[2018-07-29 23:12] LABS: ALANINE AMINOTRANSFERASE 32 U/L (12-78); ALBUMIN 3.4 g/dL (3.4-5.0); ALKALINE PHOSPHATASE 72 U/L (46-116); ASPARTATE AMINOTRANSFERASE 49 U/L (15-37); BILIRUBIN,TOTAL 0.3 mg/dL (0.1-1.0); TOTAL PROTEIN, SERUM 7.3 g/dL (6.4-8.2)
[2018-07-30] MEDS ORDERED: ZOLPIDEM TARTRATE 10 MG TABLET PO PRN (04:30)
[2018-07-30] MEDS ORDERED: LORazepam 2 MG TABLET PO PRN (04:30)
[2018-07-30] MEDS ORDERED: HALOPERIDOL 5 MG TABLET PO PRN (04:30)
[2018-07-30 04:56] VITALS: BP 152/97
[2018-07-30 05:19] LABS: APPEARANCE,URINE CLEAR (CLEAR); BILIRUBIN,URINE NEGATIVE (NEGATIVE); GLUCOSE, URINE (UA) NEGATIVE (NEGATIVE); KETONES,URINE NEGATIVE (NEGATIVE); LEUKOCYTE ESTERASE ,URINE NEGATIVE (NEGATIVE); NITRATE,URINE NEGATIVE (NEGATIVE); OCCULT BLOOD,URINE NEGATIVE (NEGATIVE); PH,URINE 5.5 (5.0-8.0); PROTEIN,URINE NEGATIVE (NEGATIVE); UROBILINOGEN,URINE 0.2 mg/dL (<=1.0)
[2018-07-30 05:26] LABS: CHOL/HDL RATIO 2.1 (3.9-5.7); CHOLESTEROL 177 mg/dL (131-200); FREE T4 (FREE THYROXINE) 1.13 ng/dL (0.76-1.46); HDL CHOLESTEROL 86 mg/dL (40-60); LDL CHOL (CALC.) 80 mg/dL (0-130); THYROID STIMULATING HORMONE 1.22 uIU/mL (0.36-3.74); TRIGLYCERIDES 56 mg/dL (15-150)
[2018-07-30] MEDS ORDERED: -PHARMACY VACCINE NOTE- MISC ONE (06:00)
[2018-07-30] MEDS ORDERED: ALBUTEROL SULFATE HFA 90 MCG/PUFF 8 GM INHALER IH PRN (13:30)
[2018-07-30] MEDS ORDERED: MAGNESIUM HYDROXIDE SUSPENSION 30 ML UDCUP PO PRN (13:30)
[2018-07-30] MEDS ORDERED: CloNIDine HCL 0.1 MG TABLET PO PRN (13:30)
[2018-07-30] MEDS ORDERED: LOPERAMIDE HCL 2 MG CAPSULE PO PRN (13:30)
[2018-07-30] MEDS ORDERED: MAG HYDROX/AL HYDROX/SIMETH ES 30 ML SUSPENSION UDCUP PO PRN (13:30)
[2018-07-30] MEDS ORDERED: BACITRACIN 28.4 GM OINTMENT TP PRN (13:30)
[2018-07-30] MEDS ORDERED: PETROLATUM,WHITE 71 GM JELLY TP PRN (13:30)
[2018-07-30] MEDS ORDERED: BENZOCAINE/MENTHOL LOZENGE MM PRN (13:30)
[2018-07-30] MEDS ORDERED: ACETAMINOPHEN 325 MG TABLET PO PRN (13:30)
[2018-07-30] MEDS ORDERED: ONDANSETRON HCL 4 MG TABLET PO PRN (13:30)
[2018-07-30] MEDS ORDERED: IBUPROFEN 600 MG TABLET PO PRN (13:30)
[2018-07-30 20:07] VITALS: BP 135/74
[2018-07-30] MEDS: RisperiDONE 1 MG TABLET PO SCH (21:26)
[2018-07-31] MEDS: OMEPRAZOLE 20 MG CAPSULE PO SCH (09:59)
[2018-07-31] MEDS: ATENOLOL 25 MG TABLET PO SCH (09:59)
[2018-07-31] MEDS: MULTIVITAMINS WITH MINERALS, THERAPEUTIC TABLET PO SCH (10:00)
[2018-07-31] MEDS: RisperiDONE 1 MG TABLET PO SCH ×2 (10:00→21:19)
[2018-07-31] MEDS: DOCUSATE SODIUM 100 MG CAPSULE PO SCH (10:00)
[2018-07-31 12:26] VITALS: BP 136/78
[2018-07-31 17:00] VITALS: BP 134/71
[2018-08-01 05:18] VITALS: BP 136/96
[2018-08-01] MEDS: OMEPRAZOLE 20 MG CAPSULE PO SCH (09:54)
[2018-08-01] MEDS: RisperiDONE 1 MG TABLET PO SCH ×2 (09:54→20:36)
[2018-08-01] MEDS: MULTIVITAMINS WITH MINERALS, THERAPEUTIC TABLET PO SCH (09:54)
[2018-08-01] MEDS: DOCUSATE SODIUM 100 MG CAPSULE PO SCH (09:54)
[2018-08-01] MEDS: ATENOLOL 25 MG TABLET PO SCH (09:54)
[2018-08-01 10:02] VITALS: BP 135/69
[2018-08-01 16:32] VITALS: BP 109/63
[2018-08-02] MEDS: ATENOLOL 25 MG TABLET PO SCH (08:51)
[2018-08-02] MEDS: OMEPRAZOLE 20 MG CAPSULE PO SCH (08:51)
[2018-08-02] MEDS: DOCUSATE SODIUM 100 MG CAPSULE PO SCH (08:51)
[2018-08-02] MEDS: RisperiDONE 1 MG TABLET PO SCH ×2 (08:52→20:20)
[2018-08-02] MEDS: MULTIVITAMINS WITH MINERALS, THERAPEUTIC TABLET PO SCH (08:52)
[2018-08-02 09:03] VITALS: BP 118/74
[2018-08-02 22:18] VITALS: BP 128/78
[2018-08-03] MEDS: OMEPRAZOLE 20 MG CAPSULE PO SCH (09:59)
[2018-08-03] MEDS: MULTIVITAMINS WITH MINERALS, THERAPEUTIC TABLET PO SCH (09:59)
[2018-08-03] MEDS: ATENOLOL 25 MG TABLET PO SCH (09:59)
[2018-08-03] MEDS: RisperiDONE 1 MG TABLET PO SCH ×2 (09:59→20:37)
[2018-08-03] MEDS: DOCUSATE SODIUM 100 MG CAPSULE PO SCH (09:59)
[2018-08-03 10:16] VITALS: BP 125/75
[2018-08-03 17:08] VITALS: BP 107/59
[2018-08-04 02:32] VITALS: BP 115/101
[2018-08-04 08:00] VITALS: BP 120/73
[2018-08-04] MEDS: DOCUSATE SODIUM 100 MG CAPSULE PO SCH (08:37)
[2018-08-04] MEDS: RisperiDONE 1 MG TABLET PO SCH ×2 (08:38→20:40)
[2018-08-04] MEDS: ATENOLOL 25 MG TABLET PO SCH (08:38)
[2018-08-04] MEDS: OMEPRAZOLE 20 MG CAPSULE PO SCH (08:38)
[2018-08-04] MEDS: MULTIVITAMINS WITH MINERALS, THERAPEUTIC TABLET PO SCH (08:38)
[2018-08-04 17:42] VITALS: BP 112/71
[2018-08-05] MEDS: MULTIVITAMINS WITH MINERALS, THERAPEUTIC TABLET PO SCH (08:51)
[2018-08-05] MEDS: DOCUSATE SODIUM 100 MG CAPSULE PO SCH (08:51)
[2018-08-05] MEDS: OMEPRAZOLE 20 MG CAPSULE PO SCH (08:51)
[2018-08-05] MEDS: RisperiDONE 1 MG TABLET PO SCH (08:51)
[2018-08-05] MEDS: ATENOLOL 25 MG TABLET PO SCH (08:52)
[2018-08-05 09:51] VITALS: BP 133/77
[2018-08-05] MEDS ORDERED: RisperiDONE 1 MG TABLET PO ONE (10:30)
[2018-08-05 17:00] VITALS: BP 98/59
[2018-08-05] MEDS: RisperiDONE 2 MG TABLET PO SCH (20:08)
[2018-08-06 08:05] VITALS: BP 133/83
[2018-08-06] MEDS: RisperiDONE 2 MG TABLET PO SCH ×2 (09:37→21:06)
[2018-08-06] MEDS: OMEPRAZOLE 20 MG CAPSULE PO SCH (09:37)
[2018-08-06] MEDS: MULTIVITAMINS WITH MINERALS, THERAPEUTIC TABLET PO SCH (09:37)
[2018-08-06] MEDS: ATENOLOL 25 MG TABLET PO SCH (09:37)
[2018-08-06] MEDS: DOCUSATE SODIUM 100 MG CAPSULE PO SCH (09:37)
[2018-08-07 02:40] VITALS: BP 132/61
[2018-08-07] MEDS: DOCUSATE SODIUM 100 MG CAPSULE PO SCH (10:10)
[2018-08-07] MEDS: MULTIVITAMINS WITH MINERALS, THERAPEUTIC TABLET PO SCH (10:10)
[2018-08-07] MEDS: RisperiDONE 2 MG TABLET PO SCH ×2 (10:10→21:17)
[2018-08-07] MEDS: OMEPRAZOLE 20 MG CAPSULE PO SCH (10:10)
[2018-08-07] MEDS: ATENOLOL 25 MG TABLET PO SCH (10:10)
[2018-08-07 10:38] VITALS: BP 136/74
[2018-08-08 08:33] VITALS: BP 122/64
[2018-08-08] MEDS: ATENOLOL 25 MG TABLET PO SCH (08:37)
[2018-08-08] MEDS: OMEPRAZOLE 20 MG CAPSULE PO SCH (08:37)
[2018-08-08] MEDS: DOCUSATE SODIUM 100 MG CAPSULE PO SCH (08:37)
[2018-08-08] MEDS: RisperiDONE 2 MG TABLET PO SCH ×2 (08:37→20:15)
[2018-08-08] MEDS: MULTIVITAMINS WITH MINERALS, THERAPEUTIC TABLET PO SCH (08:37)
[2018-08-08 17:02] VITALS: BP 106/62
[2018-08-09 09:46] VITALS: BP 110/79
[2018-08-09] MEDS: RisperiDONE 2 MG TABLET PO SCH ×2 (09:56→20:38)
[2018-08-09] MEDS: ATENOLOL 25 MG TABLET PO SCH (09:56)
[2018-08-09] MEDS: OMEPRAZOLE 20 MG CAPSULE PO SCH (09:56)
[2018-08-09] MEDS: DOCUSATE SODIUM 100 MG CAPSULE PO SCH (09:56)
[2018-08-09] MEDS: MULTIVITAMINS WITH MINERALS, THERAPEUTIC TABLET PO SCH (09:56)
[2018-08-09 22:47] VITALS: BP 100/60
[2018-08-10] MEDS: MULTIVITAMINS WITH MINERALS, THERAPEUTIC TABLET PO SCH (10:07)
[2018-08-10] MEDS: DOCUSATE SODIUM 100 MG CAPSULE PO SCH (10:07)
[2018-08-10] MEDS: OMEPRAZOLE 20 MG CAPSULE PO SCH (10:07)
[2018-08-10] MEDS: RisperiDONE 2 MG TABLET PO SCH ×2 (10:07→20:25)
[2018-08-10] MEDS: ATENOLOL 25 MG TABLET PO SCH (10:07)
[2018-08-10 12:37] VITALS: BP 106/72
[2018-08-10 16:00] VITALS: BP 115/81
[2018-08-11] MEDS: MULTIVITAMINS WITH MINERALS, THERAPEUTIC TABLET PO SCH (09:56)
[2018-08-11] MEDS: ATENOLOL 25 MG TABLET PO SCH (09:56)
[2018-08-11] MEDS: DOCUSATE SODIUM 100 MG CAPSULE PO SCH (09:56)
[2018-08-11] MEDS: OMEPRAZOLE 20 MG CAPSULE PO SCH (09:56)
[2018-08-11] MEDS: RisperiDONE 2 MG TABLET PO SCH ×2 (09:56→20:09)
[2018-08-11 10:22] VITALS: BP 129/69
[2018-08-11 16:55] VITALS: BP 149/67
[2018-08-12 04:40] VITALS: BP 130/67
[2018-08-12] MEDS: ATENOLOL 25 MG TABLET PO SCH (09:00)
[2018-08-12] MEDS: RisperiDONE 2 MG TABLET PO SCH ×2 (09:11→22:03)
[2018-08-12] MEDS: DOCUSATE SODIUM 100 MG CAPSULE PO SCH (09:11)
[2018-08-12] MEDS: OMEPRAZOLE 20 MG CAPSULE PO SCH (09:11)
[2018-08-12] MEDS: MULTIVITAMINS WITH MINERALS, THERAPEUTIC TABLET PO SCH (09:11)
[2018-08-12 10:43] VITALS: BP 97/54
[2018-08-12 17:09] VITALS: BP 122/74
[2018-08-13] MEDS: RisperiDONE 2 MG TABLET PO SCH (09:27)
[2018-08-13] MEDS: DOCUSATE SODIUM 100 MG CAPSULE PO SCH (09:27)
[2018-08-13] MEDS: ATENOLOL 25 MG TABLET PO SCH (09:27)
[2018-08-13] MEDS: MULTIVITAMINS WITH MINERALS, THERAPEUTIC TABLET PO SCH (09:27)
[2018-08-13] MEDS: OMEPRAZOLE 20 MG CAPSULE PO SCH (09:27)
[2018-08-13 09:30] VITALS: BP 122/67
[2018-08-13] MEDS ORDERED: RISP2 PO (11:28)
[2018-08-13] MEDS ORDERED: ATEN25TA PO (13:06)
[2018-08-13] MEDS ORDERED: MULT-1239 PO (13:06)
[2018-08-13] MEDS ORDERED: OMEP20 PO (13:06)
[2018-08-13] MEDS ORDERED: DSS100 PO (13:06)
== END 2018-08-13 13:33 | disposition home or self-care (01) | DRG 750 ==
LOC: EMS 21:56 → 3EI 07-30 04:18
DX: F25.0 Schizoaffective disorder, bipolar type (principal); F14.20 Cocaine dependence, uncomplicated; R45.851 Suicidal ideations; F15.90 Other stimulant use, unspecified, uncomplicated; F12.90 Cannabis use, unspecified, uncomplicated; I10 Essential (primary) hypertension; J44.9 Chronic obstructive pulmonary disease, unspecified; K21.9 Gastro-esophageal reflux disease without esophagitis; F10.10 Alcohol abuse, uncomplicated; B18.2 Chronic viral hepatitis C; F41.9 Anxiety disorder, unspecified; G47.00 Insomnia, unspecified; F17.210 Nicotine dependence, cigarettes, uncomplicated; Z71.51 Drug abuse counseling and surveillance of drug abuser; Z79.899 Other long term (current) drug therapy; Z71.6 Tobacco abuse counseling; Z91.5 Personal history of self-harm; Z59.0 Homelessness; Z91.14 Patient's other noncompliance with medication regimen; Z56.0 Unemployment, unspecified
CPT/HCPCS: 83036; 84439; 84443; G0480

== ENCOUNTER 2018-08-17 10:43 | Emergency (ER) | payer SELFPAY ==
[~2018-08-17] VITALS: Ht 170.2 cm; Wt 75.0 kg
[~2018-08-17 10:43] MED LIST changes: +ATEN25TA PO; +DSS100 PO; +MULT-1239 PO; +OMEP20 PO
[2018-08-17 10:46] VITALS: BP 178/90
[2018-08-17] MEDS ORDERED: KETOROLAC TROMETHAMINE 10 MG TABLET PO ONE (12:30)
== END 2018-08-17 12:33 | disposition home or self-care (01) ==
LOC: EMS 10:45
DX: T84.84XA Pain due to internal orthopedic prosthetic devices, implants and grafts, initial encounter (principal); F20.9 Schizophrenia, unspecified; F31.9 Bipolar disorder, unspecified; Z59.0 Homelessness; Z79.899 Other long term (current) drug therapy; Y83.8 Other surgical procedures as the cause of abnormal reaction of the patient, or of later complication, without mention of misadventure at the time of the procedure; Y92.89 Other specified places as the place of occurrence of the external cause

== ENCOUNTER 2018-08-22 02:56 | Emergency (ER) | payer SELFPAY ==
[~2018-08-22] VITALS: Ht 170.2 cm; Wt 61.4 kg
[2018-08-22 05:24] VITALS: BP 144/92
== END 2018-08-22 05:38 | disposition home or self-care (01) ==
LOC: EMS 02:59
DX: S60.221A Contusion of right hand, initial encounter (principal); F31.9 Bipolar disorder, unspecified; F20.9 Schizophrenia, unspecified; K21.9 Gastro-esophageal reflux disease without esophagitis; F17.210 Nicotine dependence, cigarettes, uncomplicated; F12.90 Cannabis use, unspecified, uncomplicated; F15.90 Other stimulant use, unspecified, uncomplicated; F14.90 Cocaine use, unspecified, uncomplicated; Z59.0 Homelessness; W18.39XA Other fall on same level, initial encounter; Y93.01 Activity, walking, marching and hiking; Y92.414 Local residential or business street as the place of occurrence of the external cause; Y99.8 Other external cause status

== ENCOUNTER 2018-08-30 22:25 | Inpatient (IN) | payer MEDICAID ==
[~2018-08-30] VITALS: Ht 170.2 cm; Wt 72.3 kg
[2018-08-30 23:44] LABS: EOSINOPHILS % (AUTO) 0.7 % (1.0-6.0); HEMATOCRIT 38.5 % (36-46); HEMOGLOBIN 12.6 g/dL (12.0-16.0); LYMPHOCYTES # (AUTO) 3.3 K/uL (1.0-4.8); LYMPHOCYTES % (AUTO) 33.8 % (22.0-44.0); MEAN CORPUSCULAR HEMOGLOBIN 31.5 pg (26.0-34.0); MEAN CORPUSCULAR HGB CONC 32.8 G/dL (31.0-37.0); MEAN CORPUSCULAR VOLUME 96 fL (80-100); MONOCYTES # (AUTO) 0.8 K/uL (0.1-1.0); MONOCYTES % (AUTO) 8.6 % (2.0-9.0); NEUTROPHILS # (AUTO) 5.4 K/uL (1.8-7.7); NEUTROPHILS % (AUTO) 55.9 % (40.0-70.0); PLATELET COUNT (AUTO) 213 K/uL (150-450); RED BLOOD CELL COUNT(AUTO) 4.01 MIL/uL (4.00-5.20)
[2018-08-30 23:56] LABS: ANION GAP 10 mmol/L (8-16); CALCIUM, TOTAL 9.2 mg/dL (8.8-10.5); CARBON DIOXIDE 30 mmol/L (22-29); CHLORIDE 101 mmol/L (98-107); CREATININE 0.79 mg/dL (0.60-1.30); GLOMERULAR FILTR. RATE CALC > 60 mL/min (>60); GLUCOSE,RANDOM 98 mg/dL (70-110); POTASSIUM 3.3 mmol/L (3.5-5.1); SODIUM SERUM 141 mmol/L (136-145); UREA NITROGEN, BLOOD 11 mg/dL (7-18)
[2018-08-31 00:02] LABS: ALANINE AMINOTRANSFERASE 28 U/L (12-78); ALBUMIN 3.1 g/dL (3.4-5.0); ALKALINE PHOSPHATASE 62 U/L (46-116); ASPARTATE AMINOTRANSFERASE 35 U/L (15-37); BILIRUBIN,TOTAL 0.5 mg/dL (0.1-1.0); TOTAL PROTEIN, SERUM 6.6 g/dL (6.4-8.2)
[2018-08-31 05:39] LABS: AMPHET/METH SCREEN,URINE NEGATIVE (NEGATIVE); BARBITURATE SCREEN, URINE NEGATIVE (NEGATIVE); BENZODIAZEPINES SCREEN,URINE NEGATIVE (NEGATIVE); CANNABINOID SCREEN,URINE NEGATIVE (NEGATIVE); COCAINE SCREEN,URINE NEGATIVE (NEGATIVE); METHADONE SCREEN, URINE NEGATIVE (NEGATIVE); OPIATE SCREEN,URINE NEGATIVE (NEGATIVE)
[2018-08-31 05:40] LABS: PHENCYCLIDINE SCREEN,URINE NEGATIVE (NEGATIVE)
[2018-08-31] MEDS ORDERED: HALOPERIDOL 5 MG TABLET PO PRN ×2 (06:00→19:15)
[2018-08-31] MEDS ORDERED: ZOLPIDEM TARTRATE 10 MG TABLET PO PRN ×2 (06:00→19:15)
[2018-08-31] MEDS ORDERED: LORazepam 2 MG TABLET PO PRN ×2 (06:00→19:15)
[2018-08-31 09:05] VITALS: BP 136/86
[2018-08-31] MEDS ORDERED: PNEUMOCOCCAL VACCINE POLYVALENT 0.5 ML VIAL [PPSV23] IM ONE (10:45)
[2018-08-31] MEDS ORDERED: ONDANSETRON HCL 4 MG TABLET PO PRN (11:30)
[2018-08-31] MEDS ORDERED: LOPERAMIDE HCL 2 MG CAPSULE PO PRN (11:30)
[2018-08-31] MEDS ORDERED: BACITRACIN 28.4 GM OINTMENT TP PRN (11:30)
[2018-08-31] MEDS ORDERED: CloNIDine HCL 0.1 MG TABLET PO PRN (11:30)
[2018-08-31] MEDS ORDERED: PETROLATUM,WHITE 71 GM JELLY TP PRN (11:30)
[2018-08-31] MEDS ORDERED: MAGNESIUM HYDROXIDE SUSPENSION 30 ML UDCUP PO PRN (11:30)
[2018-08-31] MEDS ORDERED: MAG HYDROX/AL HYDROX/SIMETH ES 30 ML SUSPENSION UDCUP PO PRN (11:30)
[2018-08-31] MEDS ORDERED: ACETAMINOPHEN 325 MG TABLET PO PRN (11:30)
[2018-08-31] MEDS ORDERED: BENZOCAINE/MENTHOL LOZENGE MM PRN (11:30)
[2018-08-31] MEDS ORDERED: ALBUTEROL SULFATE HFA 90 MCG/PUFF 8 GM INHALER IH PRN (11:30)
[2018-08-31] MEDS: RisperiDONE 2 MG TABLET PO SCH ×2 (13:37→21:26)
[2018-08-31 16:57] VITALS: BP 136/69
[2018-09-01 02:57] VITALS: BP 120/70
[2018-09-01 08:19] VITALS: BP 142/70
[2018-09-01] MEDS: DOCUSATE SODIUM 100 MG CAPSULE PO SCH (09:43)
[2018-09-01] MEDS: OMEPRAZOLE 20 MG CAPSULE PO SCH (09:43)
[2018-09-01] MEDS: RisperiDONE 2 MG TABLET PO SCH ×2 (09:44→20:00)
[2018-09-01] MEDS: MULTIVITAMINS WITH MINERALS, THERAPEUTIC TABLET PO SCH (09:45)
[2018-09-01] MEDS: ATENOLOL 25 MG TABLET PO SCH (09:45)
[2018-09-01] MEDS: BENZTROPINE MESYLATE 1 MG TABLET PO SCH ×2 (10:51→16:45)
[2018-09-01 15:09] VITALS: BP 142/75
[2018-09-01 16:20] VITALS: BP 129/63
[2018-09-01 17:02] VITALS: BP 129/63
[2018-09-01] MEDS: IBUPROFEN 600 MG TABLET PO PRN (17:02)
[2018-09-02 06:42] VITALS: BP 125/76
[2018-09-02 08:23] LABS: HEMATOCRIT 38.4 % (36-46); HEMOGLOBIN 12.7 g/dL (12.0-16.0); MEAN CORPUSCULAR HEMOGLOBIN 31.7 pg (26.0-34.0); MEAN CORPUSCULAR HGB CONC 33.1 G/dL (31.0-37.0); MEAN CORPUSCULAR VOLUME 96 fL (80-100); PLATELET COUNT (AUTO) 189 K/uL (150-450); RED CELL DISTRIBUTION WIDTH 14.2 % (11.5-14.5)
[2018-09-02 08:39] VITALS: BP 142/83
[2018-09-02 08:44] LABS: ANION GAP 4 mmol/L (8-16); CALCIUM, TOTAL 8.8 mg/dL (8.8-10.5); CARBON DIOXIDE 31 mmol/L (22-29); CHLORIDE 104 mmol/L (98-107); GLOMERULAR FILTR. RATE CALC > 60 mL/min (>60); GLUCOSE,RANDOM 81 mg/dL (70-110); PHOSPHORUS 3.9 mg/dL (2.5-4.9); POTASSIUM 4.5 mmol/L (3.5-5.1); SODIUM SERUM 139 mmol/L (136-145); UREA NITROGEN, BLOOD 14 mg/dL (7-18)
[2018-09-02] MEDS: BENZTROPINE MESYLATE 1 MG TABLET PO SCH ×2 (09:00→17:05)
[2018-09-02] MEDS: OMEPRAZOLE 20 MG CAPSULE PO SCH (09:00)
[2018-09-02] MEDS: MULTIVITAMINS WITH MINERALS, THERAPEUTIC TABLET PO SCH (09:00)
[2018-09-02] MEDS: DOCUSATE SODIUM 100 MG CAPSULE PO SCH (09:00)
[2018-09-02] MEDS: ATENOLOL 25 MG TABLET PO SCH (09:00)
[2018-09-02] MEDS: RisperiDONE 2 MG TABLET PO SCH ×2 (09:06→20:34)
[2018-09-02 09:32] LABS: BAND NEUTROPHILS % (MANUAL) 2 % (0-5); EOSINOPHILS % (MANUAL) 2 % (1-6); LYMPHOCYTES % (MANUAL) 29 % (22-44); MONOCYTES % (MANUAL) 6 % (2-9); SEGMENTED NEUTROPHILS % 61 % (40-70)
[2018-09-02 16:05] VITALS: BP 145/76
[2018-09-02] MEDS: MUPIROCIN CALCIUM 2% 22 GM OINTMENT TP SCH (17:00)
[2018-09-03 01:34] VITALS: BP 140/81
[2018-09-03 08:04] VITALS: BP 128/70
[2018-09-03] MEDS: BENZTROPINE MESYLATE 1 MG TABLET PO SCH ×2 (09:00→17:00)
[2018-09-03] MEDS: ATENOLOL 25 MG TABLET PO SCH (09:00)
[2018-09-03] MEDS: MUPIROCIN CALCIUM 2% 22 GM OINTMENT TP SCH ×2 (09:03→17:47)
[2018-09-03] MEDS: DOCUSATE SODIUM 100 MG CAPSULE PO SCH (09:03)
[2018-09-03] MEDS: RisperiDONE 2 MG TABLET PO SCH ×2 (09:04→20:53)
[2018-09-03] MEDS: MULTIVITAMINS WITH MINERALS, THERAPEUTIC TABLET PO SCH (09:04)
[2018-09-03] MEDS: OMEPRAZOLE 20 MG CAPSULE PO SCH (09:04)
[2018-09-03 16:01] VITALS: BP 115/64
[2018-09-04 00:54] VITALS: BP 129/77
[2018-09-04 08:10] VITALS: BP 130/99
[2018-09-04] MEDS: MUPIROCIN CALCIUM 2% 22 GM OINTMENT TP SCH (08:39)
[2018-09-04] MEDS: OMEPRAZOLE 20 MG CAPSULE PO SCH (08:40)
[2018-09-04] MEDS: RisperiDONE 2 MG TABLET PO SCH (08:40)
[2018-09-04] MEDS: MULTIVITAMINS WITH MINERALS, THERAPEUTIC TABLET PO SCH (08:40)
[2018-09-04] MEDS: DOCUSATE SODIUM 100 MG CAPSULE PO SCH (08:40)
[2018-09-04] MEDS: BENZTROPINE MESYLATE 1 MG TABLET PO SCH (08:47)
[2018-09-04] MEDS: ATENOLOL 25 MG TABLET PO SCH (08:47)
[2018-09-04] MEDS ORDERED: BENZ1TAB10 PO (10:46)
[2018-09-04] MEDS: IBUPROFEN 600 MG TABLET PO PRN (10:49)
== END 2018-09-04 12:35 | disposition home or self-care (01) | DRG 750 ==
LOC: EMS 22:28 → B3A 08-31 05:30
PROVIDERS: ADMIT Psychiatry & Neurology Child & Adolescent Psychiatry; ATTEND Psychiatry & Neurology Child & Adolescent Psychiatry
DX: F25.0 Schizoaffective disorder, bipolar type (principal); R45.851 Suicidal ideations; Z59.0 Homelessness; F12.90 Cannabis use, unspecified, uncomplicated; F14.10 Cocaine abuse, uncomplicated; F10.10 Alcohol abuse, uncomplicated; B18.2 Chronic viral hepatitis C; F17.210 Nicotine dependence, cigarettes, uncomplicated; F41.9 Anxiety disorder, unspecified; J44.9 Chronic obstructive pulmonary disease, unspecified; I10 Essential (primary) hypertension; G47.00 Insomnia, unspecified; K21.9 Gastro-esophageal reflux disease without esophagitis; Z79.899 Other long term (current) drug therapy; Z71.6 Tobacco abuse counseling; Z71.51 Drug abuse counseling and surveillance of drug abuser
CPT/HCPCS: 83735; 84100; 85007; 87081; 99406; G0480

== ENCOUNTER 2018-09-12 04:11 | Emergency (ER) | payer MEDICAID ==
[~2018-09-12] VITALS: Ht 170.2 cm; Wt 75.0 kg
[~2018-09-12 04:11] MED LIST changes: +BENZ1TAB10 PO; -DSS100 PO; -MULT-1239 PO; -OMEP20 PO
[2018-09-12 04:19] VITALS: BP 160/92
[2018-09-12 04:58] LABS: AMPHET/METH SCREEN,URINE NEGATIVE (NEGATIVE); BARBITURATE SCREEN, URINE NEGATIVE (NEGATIVE); BENZODIAZEPINES SCREEN,URINE NEGATIVE (NEGATIVE); CANNABINOID SCREEN,URINE NEGATIVE (NEGATIVE); COCAINE SCREEN,URINE NEGATIVE (NEGATIVE); METHADONE SCREEN, URINE NEGATIVE (NEGATIVE); OPIATE SCREEN,URINE NEGATIVE (NEGATIVE)
[2018-09-12 04:59] LABS: PHENCYCLIDINE SCREEN,URINE NEGATIVE (NEGATIVE)
== END 2018-09-12 07:15 | disposition left against medical advice (07) ==
LOC: EMS 04:11
DX: R51 Headache (principal); Z53.21 Procedure and treatment not carried out due to patient leaving prior to being seen by health care provider

== ENCOUNTER 2018-09-30 07:26 | Emergency (ER) | payer MEDICAID ==
[~2018-09-30 07:26] MED LIST changes: -ATEN25TA PO; +OMEP20 PO
== END 2018-09-30 08:15 | disposition left against medical advice (07) ==
LOC: EMS 07:27
DX: Z00.00 Encounter for general adult medical examination without abnormal findings (principal); Z53.21 Procedure and treatment not carried out due to patient leaving prior to being seen by health care provider

== ENCOUNTER 2020-02-22 19:26 | Emergency (ER) | payer MEDICAID ==
[~2020-02-22] VITALS: Ht 170.2 cm; Wt 95.5 kg
[~2020-02-22 19:26] MED LIST changes: -RISP2 PO; +RISP2TAB23 PO
[2020-02-22 20:45] VITALS: BP 141/75
[2020-02-22] MEDS ORDERED: IBUPROFEN 600 MG TABLET PO ONE (21:30)
== END 2020-02-22 22:00 | disposition home or self-care (01) ==
LOC: EMS 19:29
DX: M79.10 Myalgia, unspecified site (principal); F31.9 Bipolar disorder, unspecified; K21.9 Gastro-esophageal reflux disease without esophagitis; F20.9 Schizophrenia, unspecified; F17.210 Nicotine dependence, cigarettes, uncomplicated; F14.90 Cocaine use, unspecified, uncomplicated; F12.90 Cannabis use, unspecified, uncomplicated; F19.90 Other psychoactive substance use, unspecified, uncomplicated; Z59.0 Homelessness
CPT/HCPCS: Z7502; Z7610

== ENCOUNTER 2020-05-09 20:17 | Emergency (ER) | payer SELFPAY ==
[~2020-05-09] VITALS: Ht 170.2 cm; Wt 75.0 kg
[2020-05-09 21:47] LABS: BASOPHILS % (AUTO) 0.6 % (0.0-2.0); EOSINOPHILS % (AUTO) 0.9 % (1.0-6.0); HEMATOCRIT 40.6 % (36-46); LYMPHOCYTES # (AUTO) 2.6 K/uL (1.0-4.8); LYMPHOCYTES % (AUTO) 22.3 % (22.0-44.0); MEAN CORPUSCULAR HEMOGLOBIN 30.5 pg (26.0-34.0); MEAN CORPUSCULAR HGB CONC 32.1 G/dL (31.0-37.0); MEAN CORPUSCULAR VOLUME 95 fL (80-100); MONOCYTES # (AUTO) 0.9 K/uL (0.1-1.0); MONOCYTES % (AUTO) 7.5 % (2.0-9.0); NEUTROPHILS # (AUTO) 8.1 K/uL (1.8-7.7); NEUTROPHILS % (AUTO) 68.7 % (40.0-70.0); PLATELET COUNT (AUTO) 307 K/uL (150-450); RED BLOOD CELL COUNT(AUTO) 4.27 MIL/uL (4.00-5.20); RED CELL DISTRIBUTION WIDTH 14.4 % (11.5-14.5)
[2020-05-09 21:58] LABS: ANION GAP 8 mmol/L (8-16); CARBON DIOXIDE 29 mmol/L (22-29); CHLORIDE 101 mmol/L (98-107); CREATININE 0.73 mg/dL (0.60-1.30); GLOMERULAR FILTR. RATE CALC > 60 mL/min (>60); GLUCOSE,RANDOM 110 mg/dL (70-110); SODIUM SERUM 138 mmol/L (136-145); UREA NITROGEN, BLOOD 8 mg/dL (7-18)
[2020-05-09 22:11] LABS: ALANINE AMINOTRANSFERASE 22 U/L (12-78); ALBUMIN 3.5 g/dL (3.4-5.0); ALKALINE PHOSPHATASE 67 U/L (46-116); ASPARTATE AMINOTRANSFERASE 21 U/L (15-37); BILIRUBIN,TOTAL 0.5 mg/dL (0.1-1.0); HCG,QUANTITATIVE 3 mIU/mL (0-6); TOTAL PROTEIN, SERUM 7.2 g/dL (6.4-8.2)
[2020-05-09] MEDS ORDERED: ACETAMINOPHEN 500 MG TABLET PO ONE (22:45)
[2020-05-09] MEDS ORDERED: POTASSIUM CHLORIDE 20 MEQ ER TABLET PO ONE (23:15)
[2020-05-09 23:27] VITALS: BP 133/95
== END 2020-05-09 23:27 | disposition home or self-care (01) ==
LOC: EMS 20:17
DX: F20.9 Schizophrenia, unspecified (principal); M79.605 Pain in left leg; F31.9 Bipolar disorder, unspecified; K21.9 Gastro-esophageal reflux disease without esophagitis; F17.210 Nicotine dependence, cigarettes, uncomplicated; F14.90 Cocaine use, unspecified, uncomplicated; F12.90 Cannabis use, unspecified, uncomplicated; F19.90 Other psychoactive substance use, unspecified, uncomplicated; Z59.0 Homelessness
CPT/HCPCS: 36415; 80053; 84702; 85025; 99284; G0480

== ENCOUNTER 2020-08-10 20:16 | Emergency (ER) | payer MEDICAID ==
[~2020-08-10] VITALS: Ht 170.2 cm; Wt 72.7 kg
[2020-08-10 20:23] VITALS: BP 137/62
== END 2020-08-11 | disposition home or self-care (01) ==
LOC: EMS 20:20
DX: R50.9 Fever, unspecified (principal); M79.10 Myalgia, unspecified site; K21.9 Gastro-esophageal reflux disease without esophagitis; F20.9 Schizophrenia, unspecified; F17.210 Nicotine dependence, cigarettes, uncomplicated; F14.90 Cocaine use, unspecified, uncomplicated; F12.90 Cannabis use, unspecified, uncomplicated; F19.90 Other psychoactive substance use, unspecified, uncomplicated
CPT/HCPCS: Z7502

== ENCOUNTER 2020-08-11 03:04 | Inpatient (IN) | payer MEDICAID ==
[~2020-08-11] VITALS: Ht 170.2 cm; Wt 72.1 kg
[2020-08-11] MEDS ORDERED: MetroNIDAZOLE 500 MG TABLET PO ONE (03:30)
[2020-08-11] MEDS ORDERED: FLUCONAZOLE 150 MG TABLET PO ONE (03:30)
[2020-08-11] MEDS ORDERED: KETOROLAC TROMETHAMINE 30 MG/ML VIAL IM ONE (04:00)
[2020-08-11] MEDS ORDERED: DiphenhydrAMINE HCL 50 MG/ML VIAL IM ONE (04:15)
[2020-08-11] MEDS ORDERED: LORazepam 2 MG/ML VIAL IM ONE (04:15)
[2020-08-11] MEDS ORDERED: HALOPERIDOL LACTATE 5 MG/ML VIAL IM ONE (04:15)
[2020-08-11] MEDS ORDERED: LORazepam 2 MG/ML VIAL ONE (04:16)
[2020-08-11] MEDS ORDERED: HALOPERIDOL LACTATE 5 MG/ML VIAL ONE (04:17)
[2020-08-11] MEDS ORDERED: DiphenhydrAMINE HCL 50 MG/ML VIAL ONE (04:17)
[2020-08-11 04:25] LABS: BASOPHILS % (AUTO) 0.7 % (0.0-2.0); HEMATOCRIT 31.7 % (36-46); HEMOGLOBIN 10.3 g/dL (12.0-16.0); LYMPHOCYTES # (AUTO) 2.9 K/uL (1.0-4.8); LYMPHOCYTES % (AUTO) 22.3 % (22.0-44.0); MEAN CORPUSCULAR HEMOGLOBIN 30.6 pg (26.0-34.0); MEAN CORPUSCULAR HGB CONC 32.6 G/dL (31.0-37.0); MEAN CORPUSCULAR VOLUME 94 fL (80-100); MONOCYTES % (AUTO) 7.4 % (2.0-9.0); NEUTROPHILS # (AUTO) 8.6 K/uL (1.8-7.7); NEUTROPHILS % (AUTO) 67.6 % (40.0-70.0); PLATELET COUNT (AUTO) 349 K/uL (150-450); RED BLOOD CELL COUNT(AUTO) 3.38 MIL/uL (4.00-5.20); RED CELL DISTRIBUTION WIDTH 14.3 % (11.5-14.5)
[2020-08-11 04:26] LABS: APPEARANCE,URINE CLOUDY (CLEAR); BILIRUBIN,URINE NEGATIVE (NEGATIVE); GLUCOSE, URINE (UA) NEGATIVE (NEGATIVE); KETONES,URINE NEGATIVE (NEGATIVE); LEUKOCYTE ESTERASE ,URINE LARGE (NEGATIVE); NITRATE,URINE NEGATIVE (NEGATIVE); OCCULT BLOOD,URINE TRACE (NEGATIVE); PROTEIN,URINE POS 1+ (NEGATIVE)
[2020-08-11 04:31] LABS: AMPHET/METH SCREEN,URINE POSITIVE (NEGATIVE); BARBITURATE SCREEN, URINE NEGATIVE (NEGATIVE); BENZODIAZEPINES SCREEN,URINE NEGATIVE (NEGATIVE); CANNABINOID SCREEN,URINE NEGATIVE (NEGATIVE); COCAINE SCREEN,URINE POSITIVE (NEGATIVE); METHADONE SCREEN, URINE NEGATIVE (NEGATIVE); OPIATE SCREEN,URINE NEGATIVE (NEGATIVE)
[2020-08-11 04:32] LABS: ANION GAP 5 mmol/L (8-16); CALCIUM, TOTAL 8.4 mg/dL (8.8-10.5); CARBON DIOXIDE 29 mmol/L (22-29); CHLORIDE 104 mmol/L (98-107); CREATININE 0.84 mg/dL (0.60-1.30); GLOMERULAR FILTR. RATE CALC > 60 mL/min (>60); GLUCOSE,RANDOM 96 mg/dL (70-110); POTASSIUM 3.3 mmol/L (3.5-5.1); SODIUM SERUM 138 mmol/L (136-145); UREA NITROGEN, BLOOD 21 mg/dL (7-18)
[2020-08-11 04:32] LABS: BACTERIA,URINE Moderate /HPF (None Seen); SQUAMOUS EPITHELIAL CELL,UR Moderate /LPF (None Seen); WBC,URINE 51-100 /HPF (0-5)
[2020-08-11 04:35] LABS: PHENCYCLIDINE SCREEN,URINE NEGATIVE (NEGATIVE)
[2020-08-11 04:38] LABS: ALANINE AMINOTRANSFERASE 41 U/L (12-78); ALBUMIN 2.8 g/dL (3.4-5.0); ALKALINE PHOSPHATASE 103 U/L (46-116); ASPARTATE AMINOTRANSFERASE 46 U/L (15-37); BILIRUBIN,TOTAL 0.4 mg/dL (0.1-1.0); TOTAL PROTEIN, SERUM 6.8 g/dL (6.4-8.2)
[2020-08-11 05:09] LABS: COVID AG,FIA SOURCE NASOPHARYNGEAL
[2020-08-11] MEDS ORDERED: CEPHALEXIN MONOHYDRATE 500 MG CAPSULE PO ONE (06:15)
[2020-08-11] MEDS ORDERED: POTASSIUM CHLORIDE 20 MEQ ER TABLET PO ONE (06:15)
[2020-08-11] MEDS ORDERED: HALOPERIDOL 5 MG TABLET PO PRN (09:30)
[2020-08-11] MEDS ORDERED: ZOLPIDEM TARTRATE 10 MG TABLET PO PRN (09:30)
[2020-08-11 16:11] VITALS: BP 137/75
[2020-08-11] MEDS: RisperiDONE 2 MG TABLET PO SCH ×2 (20:57→22:53)
[2020-08-11] MEDS: IBUPROFEN 600 MG TABLET PO PRN (22:50)
[2020-08-12 06:23] VITALS: BP 134/60
[2020-08-12 07:48] LABS: CHOL/HDL RATIO 2.7 (3.9-5.7)
[2020-08-12 08:19] VITALS: BP 124/62
[2020-08-12] MEDS: CEPHALEXIN MONOHYDRATE 500 MG CAPSULE PO SCH ×3 (08:34→16:49)
[2020-08-12] MEDS: SULFAMETHOX/TRIMETH DS 800-160 MG/TABLET PO SCH ×2 (08:34→16:49)
[2020-08-12] MEDS ORDERED: RisperiDONE 1 MG TABLET PO SCH (09:00)
[2020-08-12] MEDS: NEOMYCIN/BACITRACIN/POLYMYXIN B 30 GM OINTMENT TP SCH (12:40)
[2020-08-12] MEDS ORDERED: LOPERAMIDE HCL 2 MG CAPSULE PO PRN (13:45)
[2020-08-12 16:59] VITALS: BP 134/81
[2020-08-12] MEDS: OLANZapine 10 MG TABLET PO SCH (20:13)
[2020-08-13 01:21] VITALS: BP 132/74
[2020-08-13 08:17] VITALS: BP 150/78
[2020-08-13] MEDS: CEPHALEXIN MONOHYDRATE 500 MG CAPSULE PO SCH ×3 (08:18→16:17)
[2020-08-13] MEDS: SULFAMETHOX/TRIMETH DS 800-160 MG/TABLET PO SCH ×2 (08:18→16:17)
[2020-08-13] MEDS: NEOMYCIN/BACITRACIN/POLYMYXIN B 30 GM OINTMENT TP SCH (08:23)
[2020-08-13] MEDS ORDERED: OLANZapine 5 MG TABLET PO SCH (09:00)
[2020-08-13 09:30] VITALS: BP 128/74
[2020-08-13 16:10] VITALS: BP 130/74
[2020-08-13] MEDS: OLANZapine 10 MG TABLET PO SCH (20:27)
[2020-08-14 00:49] VITALS: BP 135/90
[2020-08-14] MEDS: IBUPROFEN 600 MG TABLET PO PRN (01:05)
[2020-08-14] MEDS: LORazepam 2 MG TABLET PO PRN (07:40)
[2020-08-14] MEDS: OLANZapine 10 MG TABLET PO SCH ×2 (08:06→20:00)
[2020-08-14] MEDS: SULFAMETHOX/TRIMETH DS 800-160 MG/TABLET PO SCH ×2 (08:06→16:06)
[2020-08-14] MEDS: CEPHALEXIN MONOHYDRATE 500 MG CAPSULE PO SCH ×3 (08:06→16:06)
[2020-08-14] MEDS: NEOMYCIN/BACITRACIN/POLYMYXIN B 30 GM OINTMENT TP SCH (08:06)
[2020-08-14 08:46] VITALS: BP 141/89
[2020-08-14 16:05] VITALS: BP 122/69
[2020-08-15 02:44] VITALS: BP 145/77
[2020-08-15] MEDS: IBUPROFEN 600 MG TABLET PO PRN (02:45)
[2020-08-15] MEDS: LORazepam 2 MG TABLET PO PRN (07:51)
[2020-08-15] MEDS: SULFAMETHOX/TRIMETH DS 800-160 MG/TABLET PO SCH ×2 (08:01→17:25)
[2020-08-15] MEDS: OLANZapine 10 MG TABLET PO SCH ×2 (08:01→20:24)
[2020-08-15] MEDS: CEPHALEXIN MONOHYDRATE 500 MG CAPSULE PO SCH ×3 (08:01→17:25)
[2020-08-15 08:17] VITALS: BP 111/70
[2020-08-15] MEDS: NEOMYCIN/BACITRACIN/POLYMYXIN B 30 GM OINTMENT TP SCH (09:18)
[2020-08-15] MEDS: NICOTINE 21 MG/24 HOUR PATCH TD SCH (09:19)
[2020-08-15 16:12] VITALS: BP 105/80
[2020-08-16 02:47] VITALS: BP 127/72
[2020-08-16] MEDS: IBUPROFEN 600 MG TABLET PO PRN ×2 (05:27→16:34)
[2020-08-16] MEDS: CEPHALEXIN MONOHYDRATE 500 MG CAPSULE PO SCH ×3 (08:11→16:21)
[2020-08-16] MEDS: SULFAMETHOX/TRIMETH DS 800-160 MG/TABLET PO SCH ×2 (08:11→16:21)
[2020-08-16] MEDS: OLANZapine 10 MG TABLET PO SCH ×2 (08:12→20:04)
[2020-08-16] MEDS: LORazepam 2 MG TABLET PO PRN (08:12)
[2020-08-16] MEDS: NICOTINE 21 MG/24 HOUR PATCH TD SCH (08:12)
[2020-08-16] MEDS: NEOMYCIN/BACITRACIN/POLYMYXIN B 30 GM OINTMENT TP SCH (08:12)
[2020-08-16 08:14] VITALS: BP 136/80
[2020-08-16 16:21] VITALS: BP 118/71
[2020-08-17 01:47] VITALS: BP 153/88
[2020-08-17] MEDS: CEPHALEXIN MONOHYDRATE 500 MG CAPSULE PO SCH ×3 (08:14→16:31)
[2020-08-17] MEDS: SULFAMETHOX/TRIMETH DS 800-160 MG/TABLET PO SCH ×2 (08:14→16:31)
[2020-08-17] MEDS: NEOMYCIN/BACITRACIN/POLYMYXIN B 30 GM OINTMENT TP SCH (08:14)
[2020-08-17] MEDS: NICOTINE 21 MG/24 HOUR PATCH TD SCH (08:14)
[2020-08-17] MEDS: OLANZapine 10 MG TABLET PO SCH ×2 (08:14→20:14)
[2020-08-17] MEDS: LORazepam 2 MG TABLET PO PRN (08:14)
[2020-08-17 08:19] VITALS: BP 131/87
[2020-08-17 10:12] LABS: BASOPHILS % (AUTO) 1.3 % (0.0-2.0); EOSINOPHILS % (AUTO) 2.1 % (1.0-6.0); HEMATOCRIT 37.2 % (36-46); HEMOGLOBIN 11.7 g/dL (12.0-16.0); LYMPHOCYTES % (AUTO) 36.6 % (22.0-44.0); MEAN CORPUSCULAR HEMOGLOBIN 30.4 pg (26.0-34.0); MEAN CORPUSCULAR HGB CONC 31.5 G/dL (31.0-37.0); MEAN CORPUSCULAR VOLUME 96 fL (80-100); MONOCYTES # (AUTO) 0.7 K/uL (0.1-1.0); MONOCYTES % (AUTO) 8.5 % (2.0-9.0); NEUTROPHILS # (AUTO) 4.3 K/uL (1.8-7.7); NEUTROPHILS % (AUTO) 51.5 % (40.0-70.0); PLATELET COUNT (AUTO) 374 K/uL (150-450); RED BLOOD CELL COUNT(AUTO) 3.87 MIL/uL (4.00-5.20); RED CELL DISTRIBUTION WIDTH 15.2 % (11.5-14.5)
[2020-08-17 16:15] VITALS: BP 106/60
[2020-08-17] MEDS: IBUPROFEN 600 MG TABLET PO PRN (19:44)
[2020-08-18 08:11] VITALS: BP 119/76
[2020-08-18] MEDS: LORazepam 2 MG TABLET PO PRN (08:36)
[2020-08-18] MEDS: SULFAMETHOX/TRIMETH DS 800-160 MG/TABLET PO SCH ×2 (08:36→16:03)
[2020-08-18] MEDS: NICOTINE 21 MG/24 HOUR PATCH TD SCH (08:36)
[2020-08-18] MEDS: OLANZapine 10 MG TABLET PO SCH ×2 (08:36→20:16)
[2020-08-18] MEDS: CEPHALEXIN MONOHYDRATE 500 MG CAPSULE PO SCH ×3 (08:36→16:03)
[2020-08-18] MEDS: NEOMYCIN/BACITRACIN/POLYMYXIN B 30 GM OINTMENT TP SCH (08:39)
[2020-08-18 16:11] VITALS: BP 106/61
[2020-08-19] MEDS: IBUPROFEN 600 MG TABLET PO PRN (05:32)
[2020-08-19 08:12] VITALS: BP 126/68
[2020-08-19] MEDS: OLANZapine 10 MG TABLET PO SCH ×2 (08:38→20:07)
[2020-08-19] MEDS: SULFAMETHOX/TRIMETH DS 800-160 MG/TABLET PO SCH ×2 (08:38→16:19)
[2020-08-19] MEDS: CEPHALEXIN MONOHYDRATE 500 MG CAPSULE PO SCH ×3 (08:38→16:18)
[2020-08-19] MEDS: NEOMYCIN/BACITRACIN/POLYMYXIN B 30 GM OINTMENT TP SCH (09:22)
[2020-08-19] MEDS: NICOTINE 21 MG/24 HOUR PATCH TD SCH (09:22)
[2020-08-19 16:16] VITALS: BP 117/84
[2020-08-19 19:55] LABS: COVID AG,FIA SOURCE NASOPHARYNGEAL
[2020-08-20 02:50] VITALS: BP 110/76
[2020-08-20 08:12] VITALS: BP 126/81
[2020-08-20] MEDS: SULFAMETHOX/TRIMETH DS 800-160 MG/TABLET PO SCH ×2 (08:19→16:17)
[2020-08-20] MEDS: CEPHALEXIN MONOHYDRATE 500 MG CAPSULE PO SCH ×3 (08:19→16:17)
[2020-08-20] MEDS: OLANZapine 10 MG TABLET PO SCH ×2 (08:20→20:53)
[2020-08-20] MEDS: LORazepam 2 MG TABLET PO PRN (08:20)
[2020-08-20] MEDS: NEOMYCIN/BACITRACIN/POLYMYXIN B 30 GM OINTMENT TP SCH (08:24)
[2020-08-20] MEDS: NICOTINE 21 MG/24 HOUR PATCH TD SCH (08:24)
[2020-08-20 16:18] VITALS: BP 102/62
[2020-08-21 01:08] VITALS: BP 101/76
[2020-08-21] MEDS: LORazepam 2 MG TABLET PO PRN (08:02)
[2020-08-21] MEDS: SULFAMETHOX/TRIMETH DS 800-160 MG/TABLET PO SCH ×2 (08:02→17:47)
[2020-08-21] MEDS: OLANZapine 10 MG TABLET PO SCH ×2 (08:02→20:50)
[2020-08-21] MEDS: CEPHALEXIN MONOHYDRATE 500 MG CAPSULE PO SCH ×3 (08:02→17:28)
[2020-08-21] MEDS: NICOTINE 21 MG/24 HOUR PATCH TD SCH (08:03)
[2020-08-21] MEDS: NEOMYCIN/BACITRACIN/POLYMYXIN B 30 GM OINTMENT TP SCH ×2 (08:03→17:49)
[2020-08-21 08:12] VITALS: BP 114/68
[2020-08-21 16:30] VITALS: BP 123/60
[2020-08-22 05:25] VITALS: BP 125/74
[2020-08-22] MEDS: LORazepam 2 MG TABLET PO PRN (08:23)
[2020-08-22] MEDS: OLANZapine 10 MG TABLET PO SCH (08:23)
[2020-08-22] MEDS: NICOTINE 21 MG/24 HOUR PATCH TD SCH (08:24)
[2020-08-22 08:35] VITALS: BP 127/71
[2020-08-22] MEDS ORDERED: OLAN5TAB2 PO (14:55)
[2020-08-22] MEDS ORDERED: OLAN10TA3 PO (14:55)
== END 2020-08-22 15:40 | disposition home or self-care (01) | DRG 750 ==
LOC: EMS 03:05 → B3A 08:25
PROVIDERS: ADMIT Psychiatry & Neurology Child & Adolescent Psychiatry; ATTEND Psychiatry & Neurology Child & Adolescent Psychiatry
DX: F25.1 Schizoaffective disorder, depressive type (principal); K21.9 Gastro-esophageal reflux disease without esophagitis; F17.210 Nicotine dependence, cigarettes, uncomplicated; N39.0 Urinary tract infection, site not specified; J44.9 Chronic obstructive pulmonary disease, unspecified; B18.2 Chronic viral hepatitis C; D64.9 Anemia, unspecified; M21.612 Bunion of left foot; F41.9 Anxiety disorder, unspecified; F15.20 Other stimulant dependence, uncomplicated; F14.10 Cocaine abuse, uncomplicated; Z59.0 Homelessness; Z20.822 Contact with and (suspected) exposure to COVID-19
CPT/HCPCS: 84132; 87081; 87086; 87426; 87491; 87591; G0480; J1200; J1630; J1885; J2060

== ENCOUNTER 2020-08-29 10:22 | Emergency (ER) | payer MEDICAID ==
[~2020-08-29] VITALS: Ht 167.6 cm; Wt 68.2 kg
[~2020-08-29 10:22] MED LIST changes: -BENZ1TAB10 PO; +OLAN10TA3 PO; +OLAN5TAB2 PO; -OMEP20 PO; -RISP2TAB23 PO
[2020-08-29 10:29] VITALS: BP 129/83
[2020-08-29 13:46] LABS: COVID AG,FIA SOURCE NASOPHARYNGEAL
[2020-09-02] MEDS ORDERED: BACTDSB PO (11:01)
== END 2020-08-29 10:46 | disposition left against medical advice (07) ==
LOC: EMS 10:22
DX: F25.9 Schizoaffective disorder, unspecified (principal); F31.9 Bipolar disorder, unspecified; K21.9 Gastro-esophageal reflux disease without esophagitis; F17.210 Nicotine dependence, cigarettes, uncomplicated; F14.90 Cocaine use, unspecified, uncomplicated; F12.90 Cannabis use, unspecified, uncomplicated; F19.90 Other psychoactive substance use, unspecified, uncomplicated; Z20.822 Contact with and (suspected) exposure to COVID-19; Z59.0 Homelessness
CPT/HCPCS: 87426; 99283

== ENCOUNTER 2020-09-11 22:29 | Emergency (ER) | payer MEDICAID ==
[~2020-09-11 22:29] MED LIST changes: +BACTDSB PO; -OLAN5TAB2 PO
== END 2020-09-11 23:22 | disposition left against medical advice (07) ==
LOC: EMS 22:29
DX: Z04.1 Encounter for examination and observation following transport accident (principal); Z53.21 Procedure and treatment not carried out due to patient leaving prior to being seen by health care provider